=== PATIENT | female | born 1990 | race African-American/Black ===

== ENCOUNTER → 2016-10-19 | Outpatient (CLI) | payer OTHER ==
[~2016-10-19] MED LIST: BLOO-54; BLOO-54 SQ; BLOOD GLUCOSE T1 TES; GLUC1000 PO; GLYB5TAB3 PO; LEVEMIR SQ; MACR100C2 PO; NITR100C4 PO; NOVONP2 SQ; NOVORP2 SQ; SYRI1DIS; SYRI1DIS SQ; ZOFR4TAB3 SL; levemir SQ
== END ==
LOC: HPND 08:56
PROVIDERS: ATTEND Obstetrics & Gynecology
DX: O24.111 Pre-existing type 2 diabetes mellitus, in pregnancy, first trimester (principal); O09.211 Supervision of pregnancy with history of pre-term labor, first trimester; O99.211 Obesity complicating pregnancy, first trimester; E66.01 Morbid (severe) obesity due to excess calories; Z68.42 Body mass index [BMI] 45.0-49.9, adult
CPT/HCPCS: 76801; 76817

== ENCOUNTER → 2016-10-30 | Outpatient (CLI) | payer OTHER ==
[~2016-10-30] MED LIST changes: -levemir SQ
== END ==
LOC: HPND 08:22
PROVIDERS: ATTEND Obstetrics & Gynecology
DX: O26.841 Uterine size-date discrepancy, first trimester (principal); O35.8XX0 Maternal care for other (suspected) fetal abnormality and damage, not applicable or unspecified
CPT/HCPCS: 76815

== ENCOUNTER 2016-11-21 18:15 | Emergency (ER) | payer OTHER ==
[~2016-11-21 18:15] MED LIST changes: -BLOO-54; -BLOO-54 SQ; -BLOOD GLUCOSE T1 TES; -GLYB5TAB3 PO; -MACR100C2 PO; -NITR100C4 PO; -NOVONP2 SQ; -NOVORP2 SQ; -SYRI1DIS; -SYRI1DIS SQ; -ZOFR4TAB3 SL
[2016-11-21] MEDS ORDERED: LACTATED RINGER'S 1000 ML INJ 1,000 ML IV ONE (19:00)
--- NOTE | 2016-11-21 19:17 | PD ---
HPI Chief Complaint Nausea/vomiting 1 day duration. Diarrhea 1 day Date Seen: November 21, 2016 Time Seen: 19:00 Travel History International Travel<30 Days: No Contact w/Intl Traveler<30Days: No History of Present Illness HPI Pt is a 26 yo , 16 weeks and 1 day based on 12 week US here. Pt has complicated by IDDM.Pt takes Levemir insulin, as well as Metformin. Pt reports nausea and associated vomiting. Subsequent diarrhea. Pt denies any fevers. She denies earlier nausea and vomiting in this No vaginal bleeding. Denies urinary symptoms Para: 2 : 4 Last Menstrual Period: November 21, 2016 : 1 History Past Medical History Narrative Medical IDDM h/o delivery at 28 weeks Morbid obesity Obstetric History Obstetric History h/o delivery at 28 weeks Past Surgical History Surgical History: No Previous Surgery Family History Family History: Negative Social History Alcohol Use: No Tobacco Use: No Substance Abuse: No Allergies-Medications (Allergen,Severity, Reaction): Coded Allergies: Percocet (Verified Allergy, Intermediate, ITCHY SKIN, 10/18/16) *MDRO Multi-Drug Resistant Organism (Verified Adverse Reaction, Unknown, ) ESBL E.Coli urine 08/2015 Uncoded Allergies: EPIDURAL (Allergy, Severe, 10/08/14) Home Meds Reported Medications Metformin (Glucophage)1,000 Mg Tab1,000 Mg PO BIDPC #60 TAB Ref 0 With a meal 10/18/16 Insulin Detemir Inj (Levemir Inj)1,000 unit/ 10 ML Vial1 Units SQ HS Ref 0 Do not mix with any other Insulin. 10/18/16 Review of Systems Except as stated in HPI: all other systems reviewed are Neg Gastrointestinal: Nausea Physical Exam Narrative GENERAL: Well-nourished, well-developed patient. SKIN: Warm and dry. HEAD: Normocephalic and atraumatic. EYES: No scleral icterus. No injection or drainage. ENT: No nasal drainage noted. Mucous membranes pink. Airway patent. NECK: Supple, trachea midline. No JVD. CARDIOVASCULAR: Regular rate and rhythm without murmurs, gallops, or rubs. RESPIRATORY: Breath sounds equal bilaterally. No accessory muscle use. BREASTS: Bilateral exam showed no masses , no retractions, no nipple discharge. ABDOMEN/GI: Abdomen soft, non-tender, bowel sounds present, no rebound, no guarding Gravid to [-] weeks size Fundal Height: [-] GENITOURINARY: External Genitalia: intact and normal in appearance BUS glands: [-] Cervix: [-] Dilatation: [-] Effacement: [-] Station: [-] Presentation: [-] Membranes: [intact or ruptured] Uterine Contractions: [-] FHT's: Category: [-] Baseline: [-] Reactive: [-] Variability: [-] Decels: [-] EXTREMITIES: No cyanosis or edema. BACK: Nontender without obvious deformity. No CVA tenderness. NEUROLOGICAL: Awake and alert. Motor and sensory grossly within normal limits. Five out of 5 muscle strength in all muscle groups. Normal speech. Data Data Vital Signs Reviewed: Yes Orders Basic Metabolic Panel (Bmp) (11/21/16 18:56) Complete Blood Count With Diff (11/21/16 18:56) Urinalysis - C+S If Indicated (11/21/16 18:56) Lactated Ringer's 1000 Ml Inj (Lr 1000 M (11/21/16 19:00) MDM Medical Record Reviewed: Yes Plan UA suggestive of UTI with + nitrite, Leuks Pt feels much better after IV bolus. No more vomiting. Plan to discharge home, on Macrobid and Zofran ODT 4mg PRN Keep appt with OB 11-28-2016 Diagnosis Diagnosis: Primary Impression: UTI (urinary tract infection) Additional Impression: Dehydration Disposition: 01 DISCHARGE HOME Condition: Good Patient Instructions: General Instructions, Urinary Tract Infection in (ED) Semaj Church MD November 21, 2016 19:17
[2016-11-21 19:21] LABS: BASOPHIL # 0.1 TH/MM3 (0-0.2); BASOPHIL % 0.8 % (0.0-2.0); EOSINOPHIL # 0.2 TH/MM3 (0-0.4); EOSINOPHIL % 2.2 % (0.0-4.0); HEMATOCRIT 34.8 % (35.0-46.0); HEMO FLAGS DIFF FINAL; LYMPH % 22.3 % (9.0-44.0); LYMPHOCYTE # 1.6 TH/MM3 (1.0-4.8); MEAN CELL VOLUME 88.4 FL (80.0-100.0); MEAN CORPUSCULAR HEMOGLOBIN 30.4 PG (27.0-34.0); MEAN CORPUSCULAR HGB CONC 34.4 % (32.0-36.0); MONO % 6.3 % (0.0-8.0); NEUT % 68.4 % (16.0-70.0); PLATELET COUNT 286 TH/MM3 (150-450); RED BLOOD COUNT 3.93 MIL/MM3 (4.00-5.30); WHITE BLOOD COUNT 7.4 TH/MM3 (4.0-11.0)
[2016-11-21 19:25] LABS: BACTERIA, URINE MANY /hpf; BLOOD, URINE NEG (NEG); COMMENT (UR) CULTURE INDICATED; CULTURE IF INDICATED CULTURE INDICATED; GLUCOSE,URINE 300 mg/dL (NEG); HYALINE CAST, URINE 1 /lpf (RARE); KETONE, URINE TRACE mg/dL (NEG); MUCUS URINE FEW /lpf (OCC); NITRITE,URINE POS (NEG); SQUAMOUS EPITHELIAL CELL URINE 7 /hpf (0-5); URINE COLOR YELLOW (YELLW/STRAW)
[2016-11-21 19:31] LABS: BICARBONATE 25.7 MEQ/L (21.0-32.0); POTASSIUM 3.4 MEQ/L (3.5-5.1)
[2016-11-21] MEDS ORDERED: ZOFR4TAB3 SL (20:40)
[2016-11-21] MEDS ORDERED: MACR100C2 PO (20:40)
--- NOTE | 2016-11-21 20:44 | HHI.DCPOC ---
Discharge Care Plan Report Symptoms to Your Doctor -Temperate above 100.5 degrees -Redness, of incision or excessive or foul smelling drainage -Unusual pain or calf pain -Increased vaginal bleeding -Painful or difficulty urinating -Feelings of extreme sadness or anxiety after 2 weeks Goals to Promote Your Health * To prevent worsening of your condition and complications * To maintain your health at the optimal level Directions to Meet Your Goals Take your medications as prescribed Follow your dietary instruction Follow activity as directed Ensure plenty of rest for recovery Drink fluids for hydration Keep your appointments as scheduled Take your immunizations and boosters as scheduled If your symptoms worsen call your PCP, if no PCP go to Urgent Care Center or Emergency Room Smoking is Dangerous to Your Health. Avoid second hand smoke Call the 24-hour crisis hotline for domestic abuse at Semaj Church MD November 21, 2016 20:44
== END 2016-11-21 20:46 | disposition home or self-care (01) ==
LOC: HOBED 18:15
DX: O23.42 Unspecified infection of urinary tract in pregnancy, second trimester (principal); B96.20 Unspecified Escherichia coli [E. coli] as the cause of diseases classified elsewhere; E86.0 Dehydration; E11.9 Type 2 diabetes mellitus without complications; E66.01 Morbid (severe) obesity due to excess calories
CPT/HCPCS: 80048; 81001; 85025; 87077; 87086; 87186; 99284

== ENCOUNTER 2016-11-28 12:56 | Inpatient (IN) | payer OTHER ==
[~2016-11-28] VITALS: Ht 175.3 cm; Wt 140.6 kg
[~2016-11-28 12:56] MED LIST changes: -BLOO-54; -BLOO-54 SQ; -BLOOD GLUCOSE T1 TES; -GLYB5TAB3 PO; -NITR100C4 PO; -NOVONP2 SQ; -NOVORP2 SQ; -SYRI1DIS; -SYRI1DIS SQ
[2016-11-28] MEDS ORDERED: NALOXONE HCL 0.4 MG/ML AMP IV PRN (13:30)
[2016-11-28] MEDS ORDERED: ONDANSETRON HCL 4 MG/2 ML VIAL IVP PRN (13:30)
[2016-11-28] MEDS ORDERED: SODIUM CHLORIDE 0.9% FLUSH 10 ML FLUSH IV FLUSH PRN (13:30)
[2016-11-28] MEDS ORDERED: MAGNESIUM HYDROXIDE SUSP 30 ML CUP PO PRN (13:30)
[2016-11-28] MEDS ORDERED: GLUCAGON 1 MG/ML VIAL OTHER PRN (13:30)
[2016-11-28] MEDS ORDERED: ZOLPIDEM TARTRATE 5 MG TAB PO PRN (13:30)
[2016-11-28] MEDS ORDERED: DEXTROSE 50% IN WATER 50 ML VIAL(D50) IV PRN (13:30)
--- NOTE | 2016-11-28 14:25 | HHI.HP ---
HPI Chief Complaint Patient sent by [facility] for poorly controlled diabetes Date Seen: November 28, 2016 Time Seen: 13:40 (Skyler Carey MD R1) Travel History International Travel<30 Days: No Contact w/Intl Traveler<30Days: No Known Affected Area: No (Skyler Carey MD R1) History of Present Illness HPI Patient is a 26-year-old at 17 weeks and 1 day of gestational age who presents with poorly controlled diabetes at the request of the maternal- medicine unit. Patient was referred to [facility] for consultation for morbid obesity, diabetes, and history of delivery. Patient is morbidly obese with a BMI of 46. She was diagnosed with diabetes in 2014. She is followed monthly by her PCP. She did not bring her blood glucose log with her the reports only checking her blood sugars twice daily. She reports that her fasting values are in the 120s-150s and bedtime values are in the 150s-160s. She reports that her last hemoglobin A1c was around 12% around a year ago, but that result is not available in the EMR. She has not had an EKG or 24-hour urine collection and states that her last eye exam was approximally 3 years ago. Patient has never spoken with a unit educator. She reports that she does not eat breakfast. The first thing she eats is around noon. She reports that she is willing to keep breakfast if requested of her. She denies any vaginal bleeding this but states that she was recently diagnosed with UTI but has not started antibiotics. Para: 2 : 5 (Skyler Carey MD R1) History Past Medical History Narrative Medical Insulin dependent diabetes diagnosed in 2014 Morbid obesity Patient has a history of frequent UTIs and yeast infections. (Skyler Carey MD R1) Obstetric History Obstetric History 2011: Spontaneous miscarriage without D&C 2012: Term , competent, vaginal delivery, 8 lbs. 9 oz. female baby in good health. 2013: Spontaneous miscarriage without D&C 2014: 28 week , complicated by PTL and PTT, vaginal delivery, 3 lbs. 10 oz. male baby who spent one half months in the NICU, has developed mental delays, but is in good health. She reports being diagnosed with a kidney infection prior to having labor with delivery 2 days later. CPC CODER history: She has a history of regular menses. There is no previous history of cone biopsy, LEEP, or any other cervical, uterine, or gynecologic surgery. No history of congenital uterine abnormalities. There is no history of STDs. ( Skyler Carey MD R1) Past Surgical History Surgical History: No Previous Surgery (Skyler Carey MD R1) Family History Narrative Family History Patient is an . Her mother has a history of ovarian cancer and there is no information regarding her father. She has one maternal half-brother and 3 maternal half-sisters who are all healthy. The father of this baby is 28 years old, healthy, . He is the father of her prior pregnancies and has one child from a prior relationship who is healthy. His mother and father healthy. He has multiple half siblings who are all healthy. (Skyler Carey MD R1) Social History Alcohol Use: No Tobacco Use: No Substance Abuse: No (Skyler Carey MD R1) Allergies-Medications (Allergen,Severity, Reaction): Coded Allergies: Percocet (Verified Allergy, Intermediate, ITCHY SKIN, 10/18/16) *MDRO Multi-Drug Resistant Organism (Verified Adverse Reaction, Unknown, ) ESBL E.Coli (urine) - 08/2015 & 11/21/16 Uncoded Allergies: EPIDURAL (Allergy, Severe, 10/08/14) Home Meds Active Scripts Ondansetron Odt (Zofran Odt)4 Mg Tab4 Mg SL Q8HR PRN (Nausea/Vomiting) #20 TAB Ref 0 Prov:Semaj Church MD 11/21/16 Nitrofurantoin Monohydrate Macrocrystals (Macrobid)100 Mg Pvy603 Mg PO BID #10 CAP Ref 0 Prov:Semaj Church MD 11/21/16 Reported Medications Metformin (Glucophage)1,000 Mg Tab1,000 Mg PO BIDPC #60 TAB Ref 0 With a meal 10/18/16 Insulin Detemir Inj (Levemir Inj)1,000 unit/ 10 ML Vial1 Units SQ HS Ref 0 Do not mix with any other Insulin. 10/18/16 Narrative Medication vitamins, Januvia and medications below: Reported Meds & Active Scripts Active Zofran Odt (Ondansetron Odt) 4 Mg Tab 4 Mg SL Q8HR PRN Macrobid (Nitrofurantoin Monoh/Nitrofur Macro) 100 Mg Cap 100 Mg PO BID Reported Glucophage (Metformin HCl) 1,000 Mg Tab 1,000 Mg PO BIDPC With a meal Levemir Inj (Insulin Detemir) 1,000 unit/ 10 ML Vial 1 Units SQ HS Do not mix with any other Insulin. (Skyler Carey MD R1) Review of Systems General / Constitutional: No: Fever, Chills Eyes: No: Visual changes HENT: No: Headaches (history of migraine) Cardiovascular: No: Chest Pain or Discomfort, Edema Respiratory: No: Short of Breath Gastrointestinal: Abdominal Pain (some discomfort) Genitourinary: No: Dysuria Musculoskeletal: No: Edema Neurologic: No: Headache (history of migraines) (Skyler Carey MD R1) Physical Exam Narrative GENERAL: Well-nourished, well-developed obese female patient. SKIN: Warm and dry. HEAD: Normocephalic and atraumatic. EYES: No scleral icterus. No injection or drainage. ENT: No nasal drainage noted. Mucous membranes pink. Airway patent. NECK: Supple, trachea midline. No JVD. CARDIOVASCULAR: Regular rate and rhythm without murmurs, gallops, or rubs. RESPIRATORY: Breath sounds equal bilaterally. No accessory muscle use. ABDOMEN/GI: Obese Abdomen soft, non-tender, bowel sounds present, no rebound, no guarding. Exam limited due to body habitus FHR: OB ultrasound from this morning was reassuring with heart rate of 153 bpm. EXTREMITIES: No cyanosis or edema. BACK: Nontender without obvious deformity. No CVA tenderness. NEUROLOGICAL: Awake and alert. Motor and sensory grossly within normal limits. Five out of 5 muscle strength in all muscle groups. Normal speech. (Skyler Carey MD R1) Data Data Orders Dietary (Dietitian) Consult (11/28/16 13:17) Consult Cdl Driver (11/28/16 13:17) Case Management Consult (11/28/16 13:17) Bedside Glucose EVELYN.AC&HS (11/28/16 13:17) Blood Glucose Goal (Criteria) (11/28/16 13:17) Hypoglycemia 70 Mg/Dl Or < (11/28/16 13:17) Notify Dr: Other (11/28/16 13:17) Dextrose 50% In Jose (Vial) Inj (D50w (Vi (11/28/16 13:30) Glucagon Inj (Glucagon Inj) (11/28/16 13:30) Insulin Aspart Supplemtl Scale (Novolog (11/28/16 16:00) Insulin Human Nph Inj (Novolin N Inj) (11/29/16 07:00) Insulin Human Nph Inj (Novolin N Inj) (11/28/16 21:00) Insulin Aspart Inj (Novolog Inj) (11/29/16 07:00) Insulin Aspart Inj (Novolog Inj) (11/28/16 21:00) Insulin Aspart Inj (Novolog Inj) (11/29/16 13:00) Admit To Inpatient (11/28/16 ) Code Status (11/28/16:17) Vital Signs (Adult) Q4H (11/28/16:17) Activity Oob Ad Deisy (11/28/16:17) Diet Diabetic (11/28/16 Lunch) Sodium Chloride 0.9% Flush (Ns Flush) (11/28/16 13:30) Sodium Chloride 0.9% Flush (Ns Flush) (11/28/16 21:00) Acetaminophen (Tylenol) (11/28/16 13:30) Ondansetron Inj (Zofran Inj) (11/28/16 13:30) Comprehensive Metabolic Panel (11/29/16 06:00) Complete Blood Count With Diff (11/29/16 06:00) Electrocardiogram (11/28/16 13:17) Zolpidem (Ambien) (11/28/16 13:30) Naloxone Inj (Narcan Inj) (11/28/16 13:30) Magnesium Hydroxide Liq (Milk Of Magnesi (11/28/16 13:30) Inpatient Certification (11/28/16 ) Thyroid Stimulating Hormone (11/29/16 06:00) Mrsa Pcr Surveillance (11/28/16 13:31) Hemoglobin (Hgb) A1c (11/29/16 06:00) Total Protein 24hr Urine (11/28/16 13:31) Creatinine 24 Hr Urine (11/28/16 13:31) Creatinine Clearance (11/28/16 13:31) Insulin Aspart Inj (Novolog Inj) (11/30/16 12:00) (Skyler Carey MD R1) Assessment/Plan Problem List: (1) DM (diabetes mellitus) in (2) Diabetes mellitus, insulin dependent (IDDM), uncontrolled (3) H/O pre-term labor Assessment and Plan Patient is a 26-year-old at 17 weeks and 1 day of gestational age who presents with poorly controlled diabetes at the request of the maternal- medicine unit for metabolic control and optimization of her insulin regimen. 1. poorly controlled IDDM in on metformin, Januvia, Levemir 100 units daily Will follow MFM recommendations below: ADA 220 kcal/day diet Goal fasting blood glucose 70-90 mg/dL and 2 hour postprandial less than 120 mg /dL Adjust insulin dosing based on glycemic levels Hemoglobin A1c Baseline TSH CBC, CMP, 24 hour urine collection for creatinine clearance and to evaluate for proteinuria Baseline EKG growth, echocardiogram and cervical length in 4 weeks as ordered and scheduled Serial growth scans at 4 week intervals Twice weekly testing at 32 weeks. Delivery advised after 39 weeks if no indication for early or delivery. MRSA nasal swab collected during this hospitalization so will not be necessary prior to delivery. Furthermore: Monitor vitals and blood glucose We'll recommend outpatient eye exam Case management consult extension educator consult Dietitian consult Switch metformin to glyburide 5 mg by mouth twice a day Initial inpatient insulin regimen as below: * NPH 40 units subcutaneous every morning and 20 units subcutaneous daily at bedtime * NovoLog 10 units subcutaneous 3 times a day before meals * Low-dose sliding scale insulin NovoLog 2. History of . Consider weekly 17 hydroxy or just her own injections up to 36 weeks due to prior delivery. This therapy might affect her blood sugar control. MFM discussed signs and symptoms of in detail. DW Dr. Chaparro. Discharge Planning Anticipate discharge in several days after metabolic control and optimization of insulin regimen. (Skyler Carey MD R1) Collaborating MD Comments Patient seen and examined. New insulin regimen discussed in detail with patient Will need better control of carbohydrate intake during the day with assistance from dietary Macrobid for recent UTI (Bessie Chaparro MD) Skyler Carey MD R1 November 28, 2016 14:25 Bessie Chaparro MD November 29, 2016 08:09
[2016-11-28] MEDS: INSULIN ASPART SUPPLEMENTAL SCALE SQ SCH ×2 (14:46→23:45)
[2016-11-28 14:55] LABS: BACTERIA, URINE RARE /hpf; BLOOD, URINE NEG (NEG); COMMENT (UR) CULTURE INDICATED; CULTURE IF INDICATED CULTURE INDICATED; GLUCOSE,URINE 1000 mg/dL (NEG); KETONE, URINE 10 mg/dL (NEG); MUCUS URINE FEW /lpf (OCC); SQUAMOUS EPITHELIAL CELL URINE 3 /hpf (0-5); URINE COLOR YELLOW (YELLW/STRAW)
[2016-11-28 14:58] LABS: NITRITE,URINE POS (NEG)
[2016-11-28 16:09] LABS: AUTOMATED NEUTROPHIL # 4.4 TH/MM3 (1.8-7.7); BASOPHIL % 0.3 % (0.0-2.0); EOSINOPHIL # 0.1 TH/MM3 (0-0.4); EOSINOPHIL % 1.9 % (0.0-4.0); HEMATOCRIT 34.2 % (35.0-46.0); HEMO FLAGS DIFF FINAL; LYMPH % 24.3 % (9.0-44.0); LYMPHOCYTE # 1.6 TH/MM3 (1.0-4.8); MEAN CELL VOLUME 91.4 FL (80.0-100.0); MEAN CORPUSCULAR HEMOGLOBIN 30.2 PG (27.0-34.0); MONO % 5.6 % (0.0-8.0); NEUT % 67.9 % (16.0-70.0); PLATELET COUNT 246 TH/MM3 (150-450); RED BLOOD COUNT 3.74 MIL/MM3 (4.00-5.30); WHITE BLOOD COUNT 6.5 TH/MM3 (4.0-11.0)
[2016-11-28 16:28] LABS: ALT (GPT) 15 U/L (10-53); ANION GAP 9 MEQ/L (5-15); AST (GOT) 8 U/L (15-37); BICARBONATE 25.4 MEQ/L (21.0-32.0); BLOOD UREA NITROGEN 4 MG/DL (7-18); CHLORIDE 103 MEQ/L (98-107); GLOMERULAR FILTRATION RATE 139 ML/MIN (>89); POTASSIUM 3.5 MEQ/L (3.5-5.1); SODIUM (NA) 137 MEQ/L (136-145)
[2016-11-28 16:38] LABS: ALKALINE PHOSPHATASE 69 U/L (45-117); TOTAL BILIRUBIN ADULT 0.2 MG/DL (0.2-1.0)
[2016-11-28 16:57] LABS: HEMOGLOBIN LA1C 2.5 %; HEMOGLOBIN P3 3.9 %
[2016-11-28] MEDS ORDERED: glyBURIDE 5 MG TAB PO SCH ×2 (17:00→21:00)
[2016-11-28] MEDS: glyBURIDE 5 MG TAB PO SCH (21:00)
[2016-11-28] MEDS ORDERED: INSULIN HUMAN NPH 1,000 UNITS/10 ML VIAL SQ SCH (21:00)
[2016-11-28] MEDS: SODIUM CHLORIDE 0.9% FLUSH 10 ML FLUSH IV FLUSH SCH (21:00)
[2016-11-28] MEDS ORDERED: INSULIN ASPART 1,000 UNITS/10 ML VIAL SQ SCH (21:00)
[2016-11-28] MEDS: NITROFURANTOIN MONOHYD MACROCR 100 MG CAP PO SCH (21:44)
[2016-11-28] MEDS: ACETAMINOPHEN 325 MG TAB PO PRN (21:47)
[2016-11-29] MEDS ORDERED: INSULIN ASPART 1,000 UNITS/10 ML VIAL SQ SCH ×2 (07:00→13:00)
[2016-11-29] MEDS ORDERED: INSULIN HUMAN NPH 1,000 UNITS/10 ML VIAL SQ SCH ×2 (07:00→21:00)
[2016-11-29] MEDS: INSULIN ASPART SUPPLEMENTAL SCALE SQ SCH ×2 (07:00→11:00)
[2016-11-29] MEDS ORDERED: INSULIN HUMAN REGULAR 1,000 UNITS/10 ML VIAL SQ SCH ×2 (08:00→17:00)
[2016-11-29] MEDS: glyBURIDE 5 MG TAB PO SCH ×2 (08:06→21:12)
[2016-11-29] MEDS: NITROFURANTOIN MONOHYD MACROCR 100 MG CAP PO SCH ×2 (08:06→17:39)
[2016-11-29] MEDS: SODIUM CHLORIDE 0.9% FLUSH 10 ML FLUSH IV FLUSH SCH ×2 (08:07→21:00)
[2016-11-29] MEDS ORDERED: glyBURIDE 5 MG TAB PO SCH (09:00)
--- NOTE | 2016-11-29 10:12 | PD.OB.ANTE ---
Subjective Diagnosis: (1) DM (diabetes mellitus) in Diagnosis: Principal (2) Diabetes mellitus, insulin dependent (IDDM), uncontrolled Diagnosis: Principal (3) H/O pre-term labor Diagnosis: Secondary Interval History Patient denies any new complaints. She reports feeling well. She reports that it will be a difficult transition to eating breakfast in the morning. She denies ever having diabetic education. Antepartum ROS: Reports: movement normal, Denies: New complaints, Loss of fluid, Vaginal bleeding, Contractions ( Skyler Carey MD R1) Objective Vital Signs Vital Signs Date Time Temp Pulse Resp B/P Pulse Ox O2 Delivery O2 Flow Rate FiO2 11/28/16 23:45 18 Lab & Micro Results Test 11/28/16 11/28/16 14:30 15:16 Urine Color YELLOW Urine Turbidity CLEAR Urine pH 5.0 Urine Specific [place] 1.031 Urine Protein TRACE mg/dL Urine Glucose (UA) 1000 mg/dL Urine Ketones 10 mg/dL Urine Occult Blood NEG Urine Nitrite POS Urine Bilirubin NEG Urine Urobilinogen LESS THAN 2.0 MG/DL Urine Leukocyte Esterase NEG Urine WBC 4 /hpf Urine Squamous Epithelial 3 /hpf Cells Urine Bacteria RARE /hpf Urine Mucus FEW /lpf Microscopic Urinalysis Comment CULTURE INDICATED Nasal Screen MRSA (PCR) MRSA NOT DETECTED White Blood Count 6.5 TH/MM3 Red Blood Count 3.74 MIL/MM3 Hemoglobin 11.3 GM/DL Hematocrit 34.2 % Mean Corpuscular Volume 91.4 FL Mean Corpuscular Hemoglobin 30.2 PG Mean Corpuscular Hemoglobin 33.0 % Concent Red Cell Distribution Width 14.0 % Platelet Count 246 TH/MM3 Mean Platelet Volume 8.7 FL Neutrophils (%) (Auto) 67.9 % Lymphocytes (%) (Auto) 24.3 % Monocytes (%) (Auto) 5.6 % Eosinophils (%) (Auto) 1.9 % Basophils (%) (Auto) 0.3 % Neutrophils # (Auto) 4.4 TH/MM3 Lymphocytes # (Auto) 1.6 TH/MM3 Monocytes # (Auto) 0.4 TH/MM3 Eosinophils # (Auto) 0.1 TH/MM3 Basophils # (Auto) 0.0 TH/MM3 CBC Comment DIFF FINAL Differential Comment Sodium Level 137 MEQ/L Potassium Level 3.5 MEQ/L Chloride Level 103 MEQ/L Carbon Dioxide Level 25.4 MEQ/L Anion Gap 9 MEQ/L Blood Urea Nitrogen 4 MG/DL Creatinine 0.63 MG/DL Estimat Glomerular Filtration 139 ML/MIN Rate Random Glucose 208 MG/DL Hemoglobin A1c 7.3 % Calcium Level 8.3 MG/DL Total Bilirubin 0.2 MG/DL Aspartate Amino Transf 8 U/L (AST/SGOT) Alanine Aminotransferase 15 U/L (ALT/SGPT) Alkaline Phosphatase 69 U/L Total Protein 6.0 GM/DL Albumin 2.6 GM/DL Thyroid Stimulating Hormone 0.948 uIU/ML 3rd Gen Date/Time Procedure Status Source Growth 11/28/16 14:30 Urine Culture Received Urine Clean Catch Pending Physical Exam GENERAL: Well-nourished, well-developed obese female patient. CARDIOVASCULAR: Regular rate and rhythm without murmurs, gallops, or rubs. RESPIRATORY: Breath sounds equal bilaterally. No accessory muscle use. ABDOMEN/GI: Abdomen soft, non-tender. Difficult to assess uterine fundus secondary to body habitus EXTREMITIES: No cyanosis or edema, non-tender, without signs of DVT. (Skyler Carey MD R1) Assessment and Plan Problem List: (1) DM (diabetes mellitus) in Status: Acute (2) Diabetes mellitus, insulin dependent (IDDM), uncontrolled Status: Acute (3) H/O pre-term labor Status: Acute Assessment and Plan Patient is a 26-year-old at 17 weeks and 1 day of gestational age who presents with poorly controlled diabetes at the request of the maternal- medicine unit for metabolic control and optimization of her insulin regimen. 1. poorly controlled IDDM in was on metformin, Januvia, Levemir 100 units daily Will follow MFM recommendations below: ADA 2200 kcal/day diet. Will changed based on environmental compliance inspector recommendations. Goal fasting blood glucose 70-90 mg/dL and 2 hour postprandial less than 120 mg /dL Adjust insulin dosing based on glycemic levels Hemoglobin A1c of 7.3 Baseline TSH wnl CBC wnl except for some anemia with a hemoglobin of 11.3, CMP showed elevated random glucose of 208, 24 hour urine collection for creatinine clearance and to evaluate for proteinuria Baseline EKG pending growth, echocardiogram and cervical length in 4 weeks as ordered and scheduled Serial growth scans at 4 week intervals Twice weekly testing at 32 weeks. Delivery advised after 39 weeks if no indication for early or delivery. MRSA nasal swab collected during this hospitalization so will not be necessary prior to delivery. Furthermore: Monitor vitals and blood glucose: 190, 172, 151, 147. We'll recommend outpatient eye exam Case management consult access control officer consult Dietitian consult Switch metformin to glyburide 5 mg by mouth twice a day Initial inpatient insulin regimen as below: * NPH 40 units subcutaneous every morning and increased to 25 units subcutaneous daily at bedtime * NovoLog 10 units subcutaneous 3 times a day before meals * Low-dose sliding scale insulin NovoLog 2. History of . Consider weekly 17 hydroxy-progesterone injections up to 36 weeks due to prior delivery. This therapy might affect her blood sugar control. MFM discussed signs and symptoms of in detail. AALIYAH Chaparro and Dr. Euceda (Skyler Carey MD R1) Collaborating MD Comments Patient seen and examined. She is noncompliant with diet at this time, drinking sugar filled sodas and a large sub sandwich while I am talking with her. I reviewed the importance of diet and the need for split dose insulin therapy. Patient does not agree with dietary measures at the time but will allow admission to initiate insulin therapy. (Bessie Chaparro MD) Skyler Carey MD R1 November 29, 2016 10:12 Bessie Chaparro MD Dec 14, 2016 07:45 AALIYAH Chaparro. Skyler Carey MD R1 November 29, 2016 10:12
[2016-11-29 11:52] VITALS: BP 117/65; PULSE 94
[2016-11-29 11:53] VITALS: RESP 20; TEMP 98
[2016-11-29 17:04] LABS: CREAT 24 TIMED 92.1 MG/DL; URINE TOTAL PROTEIN TIMED 9.7 MG/DL
[2016-11-29 19:59] VITALS: RESP 18; TEMP 98.5
[2016-11-29 20:00] VITALS: BP 117/60; PULSE 95
[2016-11-30 07:25] VITALS: BP 109/57; PULSE 93
[2016-11-30] MEDS ORDERED: INSULIN HUMAN REGULAR 1,000 UNITS/10 ML VIAL SQ ONE (07:30)
[2016-11-30 07:33] VITALS: RESP 18; TEMP 99
[2016-11-30] MEDS: SODIUM CHLORIDE 0.9% FLUSH 10 ML FLUSH IV FLUSH SCH ×2 (07:45→21:00)
[2016-11-30] MEDS: INSULIN HUMAN NPH 1,000 UNITS/10 ML VIAL SQ SCH (08:25)
[2016-11-30] MEDS: glyBURIDE 5 MG TAB PO SCH ×2 (09:01→21:03)
[2016-11-30] MEDS: NITROFURANTOIN MONOHYD MACROCR 100 MG CAP PO SCH ×2 (09:01→18:17)
--- NOTE | 2016-11-30 09:38 | HHI.FPPN ---
Subjective Remarks Patient seen and examined this morning. She reports feeling well this morning. Denies nausea, vomiting, leakage of fluid, vaginal bleeding, abdominal pain or cramping. She met with the certified breastfeeding educator yesterday and reports that this was very helpful. She understands that her blood sugar was elevated this morning and that she will need to remain in the hospital for 1 additional day to better control her diabetes. She is able to draw up and administer her own insulin without difficulty. Objective Vitals Vital Signs Date Time Temp Pulse Resp B/P Pulse Ox O2 Delivery O2 Flow Rate FiO2 11/30/16 07:33 99.0 18 11/30/16 07:25 93 109/57 11/29/16 20:00 95 117/60 11/29/16 19:59 18 11/29/16 19:59 98.5 11/29/16 11:53 98.0 20 11/29/16 11:52 94 117/65 Result Diagram: 11/28/16 1516 11/29/16 1400 Objective Remarks GENERAL: Well-nourished, well-developed obese female patient. SKIN: Warm and dry. HEAD: Normocephalic and atraumatic. EYES: No scleral icterus. No injection or drainage. ENT: No nasal drainage noted. Mucous membranes pink. Airway patent. NECK: Supple, trachea midline. No JVD. CARDIOVASCULAR: Regular rate and rhythm without murmurs, gallops, or rubs. RESPIRATORY: Breath sounds equal bilaterally. No accessory muscle use. ABDOMEN/GI: Obese Abdomen soft, non-tender, bowel sounds present, no rebound, no guarding. Exam limited due to body habitus FHR: 150 bpm. EXTREMITIES: No cyanosis or edema. NEUROLOGICAL: Awake and alert. Motor and sensory grossly within normal limits. Normal speech. A/P Assessment and Plan Patient is a 26-year-old at 17 weeks and 2 day of gestational age who presents with poorly controlled diabetes at the request of the maternal- medicine for optimization of her insulin regimen. 1. Poorly controlled IDDM in on metformin, Januvia, Levemir 100 units daily Will follow MFM recommendations below: ADA 2200 kcal/day diet Goal fasting blood glucose 70-90 mg/dL and 2 hour postprandial less than 120 mg /dL Adjust insulin dosing based on glycemic levels Hemoglobin A1c 7.3 Baseline TSH: 0.948 24 hour urine creatinine 2.37, creatinine clearance over 24 hours 181, urine total protein over 24 hours 250 Baseline EKG: Sinus rhythm growth, echocardiogram and cervical length in 4 weeks as ordered and scheduled Serial growth scans at 4 week intervals Twice weekly testing at 32 weeks. Delivery advised after 39 weeks if no indication for early or delivery. MRSA nasal swab collected during this hospitalization so will not be necessary prior to delivery. Furthermore: Monitor vitals and blood glucose We'll recommend outpatient eye exam Case management consult community nutrition educator consult Dietitian consult Switch metformin to glyburide 5 mg by mouth twice a day Insulin regimen as below: * NPH Novolin N 40 units subcutaneous BID@7, 1700 * Novolin R 15 units @700, 20 units @1700subcutaneous 2. History of . Consider weekly 17 hydroxy or just her own injections up to 36 weeks due to prior delivery. This therapy might affect her blood sugar control. Care for women to order this medication pending insurance approval MFM discussed signs and symptoms of in detail. Clarence Hernandez Dr., MD R2 Nov 30, 2016 09:38
--- NOTE | 2016-11-30 11:53 | EKG ---
Date Performed: 11/29/2016 Time Performed: 12:39:45 PTAGE: 26 years EKG: Sinus rhythm NONSPECIFIC T-WAVE ABNORMALITY BORDERLINE ECG PREVIOUS TRACING : 04/26/2015 16.57 Compared to prior tracing no significant change DOCTOR: Jhonatan Mon Interpretating Date/Time 11/30/2016 11:52:32
[2016-11-30] MEDS ORDERED: INSULIN ASPART 1,000 UNITS/10 ML VIAL SQ SCH ×2 (12:00→17:00)
[2016-11-30 17:00] VITALS: RESP 18
[2016-11-30] MEDS ORDERED: INSULIN HUMAN REGULAR 1,000 UNITS/10 ML VIAL SQ SCH (17:00)
[2016-11-30] MEDS ORDERED: INSULIN HUMAN NPH 1,000 UNITS/10 ML VIAL SQ SCH ×2 (17:00)
[2016-11-30 17:14] VITALS: BP 115/74; PULSE 129
[2016-11-30 21:01] VITALS: BP 104/42; PULSE 90
[2016-11-30] MEDS: ACETAMINOPHEN 325 MG TAB PO PRN (21:03)
[2016-11-30 21:05] VITALS: RESP 18; TEMP 98.4
[2016-12-01] MEDS ORDERED: INSULIN ASPART 1,000 UNITS/10 ML VIAL SQ SCH (07:00)
[2016-12-01] MEDS ORDERED: INSULIN HUMAN NPH 1,000 UNITS/10 ML VIAL SQ SCH ×3 (07:00→17:00)
[2016-12-01] MEDS ORDERED: INSULIN HUMAN REGULAR 1,000 UNITS/10 ML VIAL SQ SCH ×2 (07:00→17:00)
[2016-12-01] MEDS: INSULIN HUMAN NPH 1,000 UNITS/10 ML VIAL SQ SCH (09:08)
[2016-12-01] MEDS: NITROFURANTOIN MONOHYD MACROCR 100 MG CAP PO SCH (09:09)
[2016-12-01] MEDS: glyBURIDE 5 MG TAB PO SCH (09:09)
[2016-12-01 09:17] VITALS: BP 104/59; PULSE 110
--- NOTE | 2016-12-01 09:20 | PD.OB.ANTE ---
Subjective Diagnosis: (1) DM (diabetes mellitus) in Diagnosis: Principal (2) Diabetes mellitus, insulin dependent (IDDM), uncontrolled Diagnosis: Principal (3) H/O pre-term labor Diagnosis: Secondary Interval History Pt seen and examined this morning. AFVSS. No acute events overnight. Pt reports doing well this morning. She endorses movement, denies leakage of fluid, vaginal bleeding, contractions. She reports understanding her diet plan that was reviewed in depth with the hand alterations seamstress. She has already met with the certified diabetes educator, has no additional questions at this time. Blood sugar this morning 154. She expresses that she will follow up with her OB care provider regularly as well as MFM. She has no other concerns. (Clarence Sprague MD R2) Objective Vital Signs Vital Signs Date Time Temp Pulse Resp B/P Pulse Ox O2 Delivery O2 Flow Rate FiO2 11/30/16 21:05 98.4 18 11/30/16 21:01 90 104/42 11/30/16 17:14 129 115/74 11/30/16 17:00 18 Lab & Micro Results Date/Time Procedure Status Source Growth 11/28/16 14:30 Urine Culture - Final Complete Urine Clean Catch Escherichia Coli Esbl Positive Physical Exam GENERAL: Well-nourished, well-developed patient. CARDIOVASCULAR: Regular rate and rhythm without murmurs, gallops, or rubs. RESPIRATORY: Breath sounds equal bilaterally. No accessory muscle use. ABDOMEN/GI: Abdomen soft, obese, non-tender. Fundus: difficult to palpate due to body habitus, exam limited GENITOURINARY: Exam deferred FHT's: 160 with doppler EXTREMITIES: No cyanosis or edema, non-tender, without signs of DVT. (Clarence Sprague MD R2) Assessment and Plan Problem List: (1) DM (diabetes mellitus) in Status: Acute (2) Diabetes mellitus, insulin dependent (IDDM), uncontrolled Status: Acute (3) H/O pre-term labor Status: Acute Assessment and Plan Patient is a 26-year-old at 17 weeks and 3 day of gestational age who presents with poorly controlled diabetes at the request of the maternal- medicine for optimization of her insulin regimen. 1. Poorly controlled IDDM in ,previously on metformin, Januvia, Levemir 100 units daily Will follow MFM recommendations, included below. ADA 2200 kcal/day diet Goal fasting blood glucose 70-90 mg/dL and 2 hour postprandial less than 120 mg /dL Adjust insulin dosing based on glycemic levels Hemoglobin A1c 7.3 Baseline TSH: 0.948 24 hour urine creatinine 2.37, creatinine clearance over 24 hours 181, urine total protein over 24 hours 250 Baseline EKG: Sinus rhythm growth, echocardiogram and cervical length in 4 weeks as ordered and scheduled Serial growth scans at 4 week intervals Twice weekly testing at 32 weeks. Delivery advised after 39 weeks if no indication for early or delivery. MRSA nasal swab collected during this hospitalization so will not be necessary prior to delivery. MRSA swab negative. Furthermore: Monitor vitals and blood glucose We'll recommend outpatient eye exam Case management consult certified diabetes educator consult completed Dietitian consult completed Continue glyburide 5 mg by mouth twice a day Insulin regimen as below: * NPH Novolin N 40 units subcutaneous BID@7:00, Will increase 17:00 dose to 50units due to persistently elevated morning blood glucose * Will increase subq Novolin R to 20 units @700, and 25 units @1700 2. History of . Consider weekly 17 hydroxy or just her own injections up to 36 weeks due to prior delivery. This therapy might affect her blood sugar control. [facility] to order this medication pending insurance approval, this was discussed with [facility] MFM discussed signs and symptoms of in detail. dw Dr. Keys and Dr. Euceda (Clarence Sprague MD R2) Assessment and Plan The exam, history, and the medical decision-making described in the above note were completed with the assistance of the resident provider. I reviewed and agree with the findings presented. I attest that I had a [id number] encounter with the patient on the same day, and personally performed and documented my assessment and findings in the medical record. (Lisa Keys MD) Clarence Sprague MD R2 Dec 01, 2016 09:20 Lisa Keys MD Dec 04, 2016 10:46
[2016-12-01 09:21] VITALS: RESP 20; TEMP 98.3
[2016-12-01] MEDS ORDERED: NOVORP2 SQ ×2 (11:54)
[2016-12-01] MEDS ORDERED: NOVONP2 SQ ×2 (11:54)
[2016-12-01] MEDS ORDERED: SYRI1DIS (11:54)
[2016-12-01] MEDS ORDERED: BLOOD GLUCOSE T1 TES ×2 (11:54→12:00)
[2016-12-01] MEDS ORDERED: NITR100C4 PO (11:54)
[2016-12-01] MEDS ORDERED: GLYB5TAB3 PO (11:54)
[2016-12-01] MEDS ORDERED: BLOO-54 (11:54)
[2016-12-01] MEDS ORDERED: BLOO-54 SQ (12:00)
[2016-12-01] MEDS ORDERED: SYRI1DIS SQ (12:00)
--- NOTE | 2016-12-01 12:06 | HHI.DCPOC ---
Discharge Care Plan Diagnosis: (1) UTI (urinary tract infection) (2) DM (diabetes mellitus) in (3) Diabetes mellitus, insulin dependent (IDDM), uncontrolled (4) H/O pre-term labor Report Symptoms to Your Doctor -Temperature above 100.5 degrees -Redness, of incision or excessive or foul smelling drainage -Unusual pain or calf pain -Increased vaginal bleeding -Painful or difficulty urinating -Feelings of extreme sadness or anxiety after 2 weeks Goals to Promote Your Health * To prevent worsening of your condition and complications * To maintain your health at the optimal level Directions to Meet Your Goals Take your medications as prescribed Follow your dietary instruction Follow activity as directed Ensure plenty of rest for recovery Drink fluids for hydration Keep your appointments as scheduled Take your immunizations and boosters as scheduled If your symptoms worsen call your PCP, if no PCP go to Urgent Care Center or Emergency Room Smoking is Dangerous to Your Health. Avoid second hand smoke Call the 24-hour crisis hotline for domestic abuse at Clarence Sprague MD R2 Dec 01, 2016 12:06
[2016-12-02] MEDS ORDERED: INSULIN HUMAN REGULAR 1,000 UNITS/10 ML VIAL SQ SCH (07:00)
== END 2016-12-01 13:49 | disposition home or self-care (01) | DRG 781 ==
LOC: H2EB 12:56 → OBSVTOIN 13:31
PROVIDERS: ADMIT Obstetrics & Gynecology Obstetrics; ATTEND Obstetrics & Gynecology Obstetrics
DX: O24.112 Pre-existing type 2 diabetes mellitus, in pregnancy, second trimester (principal); Z68.42 Body mass index [BMI] 45.0-49.9, adult; E11.65 Type 2 diabetes mellitus with hyperglycemia; O23.42 Unspecified infection of urinary tract in pregnancy, second trimester; O99.212 Obesity complicating pregnancy, second trimester; O99.012 Anemia complicating pregnancy, second trimester; D64.9 Anemia, unspecified; Z3A.17 17 weeks gestation of pregnancy; E66.01 Morbid (severe) obesity due to excess calories; O09.212 Supervision of pregnancy with history of pre-term labor, second trimester; Z79.4 Long term (current) use of insulin; Z88.5 Allergy status to narcotic agent; Z71.3 Dietary counseling and surveillance
CPT/HCPCS: 76811; 76817; 80053; 81001; 82570; 82575; 82948; 83036; 84157; 84443; 85025; 87077; 87086; 87186; 87641; 93005; J1815

== ENCOUNTER → 2016-11-28 | Outpatient (CLI) | payer OTHER ==
[~2016-11-28] MED LIST changes: +BLOO-54; +BLOO-54 SQ; +BLOOD GLUCOSE T1 TES; +GLYB5TAB3 PO; +MACR100C2 PO; +NITR100C4 PO; +NOVONP2 SQ; +NOVORP2 SQ; +SYRI1DIS; +SYRI1DIS SQ; +ZOFR4TAB3 SL
== END ==
LOC: HPND 09:19 → UNDOADMOB 12:12 → H2EB 12:12
PROVIDERS: ATTEND Obstetrics & Gynecology
DX: O24.919 Unspecified diabetes mellitus in pregnancy, unspecified trimester (principal); O09.292 Supervision of pregnancy with other poor reproductive or obstetric history, second trimester; O99.212 Obesity complicating pregnancy, second trimester; Z3A.00 Weeks of gestation of pregnancy not specified
CPT/HCPCS: 76811; 76817

== ENCOUNTER → 2016-12-27 | Outpatient (CLI) | payer OTHER ==
[~2016-12-27] MED LIST changes: +BLOO-54 SQ; +BLOOD GLUCOSE T1 TES; -GLUC1000 PO; +GLYB5TAB3 PO; -LEVEMIR SQ; -MACR100C2 PO; +NOVONP2 SQ; +NOVORP2 SQ; +SYRI1DIS SQ; -ZOFR4TAB3 SL
== END ==
LOC: HPND 08:43
PROVIDERS: ATTEND Obstetrics & Gynecology
DX: O35.8XX0 Maternal care for other (suspected) fetal abnormality and damage, not applicable or unspecified (principal); O24.112 Pre-existing type 2 diabetes mellitus, in pregnancy, second trimester; O99.212 Obesity complicating pregnancy, second trimester; E66.01 Morbid (severe) obesity due to excess calories; Z68.42 Body mass index [BMI] 45.0-49.9, adult
CPT/HCPCS: 76816; 76817; 76825; 76827; 93325

== ENCOUNTER → 2017-01-24 | Outpatient (CLI) | payer OTHER | LOC: HPND 09:06 | PROVIDERS: ATTEND Obstetrics & Gynecology | DX: O09.212 Supervision of pregnancy with history of pre-term labor, second trimester (principal); O99.212 Obesity complicating pregnancy, second trimester; O24.414 Gestational diabetes mellitus in pregnancy, insulin controlled; Z68.42 Body mass index [BMI] 45.0-49.9, adult | CPT/HCPCS: 76816 ==

== ENCOUNTER → 2017-02-27 | Outpatient (CLI) | payer OTHER ==
[~2017-02-27] MED LIST changes: +AMOX500C PO; +CEPH500C PO; +GUMMCHW; +IBUP-232 PO; +INSU1POW25 SQ; +METF1000 PO; +NITR1CAP36 PO; +NITR1CAP37 PO; +NOVOINJ6 SQ; +TRAM50TA PO
== END ==
LOC: HPND 09:17
PROVIDERS: ATTEND Obstetrics & Gynecology
DX: O99.213 Obesity complicating pregnancy, third trimester (principal); E66.01 Morbid (severe) obesity due to excess calories; Z68.42 Body mass index [BMI] 45.0-49.9, adult; O24.113 Pre-existing type 2 diabetes mellitus, in pregnancy, third trimester; Z3A.30 30 weeks gestation of pregnancy
CPT/HCPCS: 76816

== ENCOUNTER 2017-04-05 11:52 | Emergency (ER) | payer OTHER ==
[~2017-04-05 11:52] MED LIST changes: -AMOX500C PO; -CEPH500C PO; -GUMMCHW; -IBUP-232 PO; -INSU1POW25 SQ; -METF1000 PO; -NITR1CAP37 PO; -NOVOINJ6 SQ; -TRAM50TA PO
[2017-04-05] MEDS ORDERED: NITR1CAP37 PO (12:59)
[2017-04-05] MEDS ORDERED: NITR1CAP36 PO (12:59)
--- NOTE | 2017-04-05 12:59 | PD ---
HPI Chief Complaint pelvic pain and pressure Travel History International Travel<30 Days: No Contact w/Intl Traveler<30Days: No Known Affected Area: No History of Present Illness HPI Patient is a 26 y/o female w/hx of DM2 who is a @ 35 weeks presenting with lower pelvic pain and pressure since yesterday. States it is similar to pain she experienced when in labor with her last . Denies vaginal bleeding, significant leakage of fluid. +FM. Coming from OB diagnostic where she just had a BPP performed. Result was 04/10. Sees Dr. Cervantes at [facility]. Testing and f/u in this has been uneventful. Hx of chlamydia and positive GBS status in previous pregnancies. Develops recurrent UTIs. Is worried she currently has a UTI. Has no other complaints. Blood sugars run 100-129. Taking levemir, metformin, and novolin for DM2. Weeks Gestation: 35 Para: 2 : 5 Miscarriage: 2 History Past Medical History Narrative Medical DM2 - taking lemeir x2/day, metformin 1000 mg BID, and novolin x2/day Obstetric History Obstetric History 2013 full term vaginal 2011 vaginal 2 spon't Ab Past Surgical History Surgical History: Unable to Obtain Family History Family History: Social History Alcohol Use: No Tobacco Use: No Substance Abuse: No Allergies-Medications (Allergen,Severity, Reaction): Coded Allergies: acetaminophen (Unverified Allergy, Intermediate, ITCHY SKIN, 02/27/17) oxycodone (Unverified Allergy, Intermediate, ITCHY SKIN, 02/27/17) *MDRO Multi-Drug Resistant Organism (Verified Adverse Reaction, Unknown, ) ESBL E.Coli (urine) - 08/2015 & 11/21/16 Uncoded Allergies: EPIDURAL (Allergy, Severe, 10/08/14) Home Meds Active Scripts Nitrofurantoin Macrocrystal (Nitrofurantoin Macrocrystal) 50 Mg Cap, 50 MG PO DAILY for Infection, #30 CAP 0 Refills Prov:Jayleen Melgar MD R1 04/05/17 Nitrofurantoin Macrocrystal (Nitrofurantoin Macrocrystal) 100 Mg Cap, 100 MG PO BID for Infection, #14 CAP 0 Refills Prov:Jayleen Melgar MD R1 04/05/17 Nitrofurantoin Macrocrystal (Nitrofurantoin Macrocrystal) 100 Mg Cap, 100 MG PO BID for Infection for 7 Days, #14 CAP 0 Refills Prov:Alexsandra Butt 02/27/17 Syringe and Needle,Insulin,1Ml (Insulin Syringe) 1 Each Disp.syrin, UNIT SQ QID , #150 Check blood sugar 4 times per day Prov:Jarod Hameed MD 01/15/17 Insulin Human Regular Inj (Novolin R Inj) 1,000 Unit/10 Ml Vial, 25 UNITS SQ DAILY@17 for DIABETIC, #1 INJECTION Prov:Jarod Hameed MD 01/15/17 Insulin Human Regular Inj (Novolin R Inj) 1,000 Unit/10 Ml Vial, 20 UNITS SQ DAILY@07 for DIABETIC for 30 Days, INJECTION Prov:Jarod Hameed MD 01/15/17 Insulin Human NPH Inj (Novolin N Inj) 1,000 Unit/10 Ml Vial, 40 INJECTION SQ DAILY@07 for diabetic for 30 Days, INJECTION Prov:Jarod Hameed MD 01/15/17 Blood Glucose Test Strips (Blood Glucose Test Strips) Strips Strip, 1 EA .ROUTE QID for Blood Sugar Management, #150 BOX 0 Refills Prov:Clarence Sprague MD R3 12/01/16 Blood-Glucose Meter (Blood Glucose Monitor) 1 Each Kit, KIT SQ QID, #1 Check blood glucose 4 times daily, record values Prov:Clarence Sprague MD R3 12/01/16 Glyburide (Glyburide) 5 Mg Tab, 5 MG PO Q12HR, #60 TAB Prov:Clarence Sprague MD R3 12/01/16 Physical Exam Narrative GENERAL: Well-nourished, well-developed patient. SKIN: Warm and dry. HEAD: Normocephalic and atraumatic. EYES: No scleral icterus. No injection or drainage. ENT: No nasal drainage noted. Mucous membranes pink. Airway patent. NECK: Supple, trachea midline. No JVD. CARDIOVASCULAR: Regular rate and rhythm without murmurs, gallops, or rubs. RESPIRATORY: Breath sounds equal bilaterally. No accessory muscle use. BREASTS: Bilateral exam showed no masses , no retractions, no nipple discharge. ABDOMEN/GI: Abdomen soft, non-tender, bowel sounds present, no rebound, no guarding Gravid to 35 weeks size Fundal Height: [-] GENITOURINARY: External Genitalia: intact and normal in appearance Cervix: [-] Dilatation: closed Effacement: [-] Station: [-] Presentation: [-] Membranes: [intact or ruptured] Uterine Contractions: [-] FHT's: Category: 1 Baseline: 130 Reactive: yes Variability: yes Decels: none EXTREMITIES: No cyanosis or edema. NEUROLOGICAL: Awake and alert. Motor and sensory grossly within normal limits. Normal speech. MDM Plan @35/3 weeks - not laboring - FHT reassuring - BPP today 04/10 - glucose check - 115 - UA shows +LE, glucose and protein; consistent with DM2 and UTI. Will provide Macrobid to treat UTI for a week and Macrodantin for a month DW Dr. Euceda Diagnosis Diagnosis: Primary Impression: DM (diabetes mellitus) in Additional Impressions: UTI (urinary tract infection) Disposition: 01 DISCHARGE HOME Condition: Stable Scripts Nitrofurantoin Macrocrystal (Nitrofurantoin Macrocrystal) 50 Mg Cap 50 MG PO DAILY for Infection, #30 CAP 0 Refills Prov: Jayleen Melgar MD R1 04/05/17 Nitrofurantoin Macrocrystal (Nitrofurantoin Macrocrystal) 100 Mg Cap 100 MG PO BID for Infection, #14 CAP 0 Refills Prov: Jayleen Melgar MD R1 04/05/17 Jayleen Melgar MD R1 Apr 05, 2017 12:59
[2017-04-16] MEDS ORDERED: AMOX500C PO (09:25)
== END 2017-04-05 13:10 | disposition home or self-care (01) ==
LOC: HOBED 11:52
DX: O24.913 Unspecified diabetes mellitus in pregnancy, third trimester (principal); O23.43 Unspecified infection of urinary tract in pregnancy, third trimester; Z3A.35 35 weeks gestation of pregnancy; Z79.4 Long term (current) use of insulin
CPT/HCPCS: 82948

== ENCOUNTER 2017-04-19 11:14 | Emergency (ER) | payer OTHER ==
[~2017-04-19] VITALS: Ht 175.3 cm; Wt 139.3 kg
[~2017-04-19 11:14] MED LIST changes: +AMOX500C PO; +NITR1CAP37 PO
--- NOTE | 2017-04-19 12:02 | PD ---
HPI Travel History International Travel<30 Days: No Contact w/Intl Traveler<30Days: No Known Affected Area: No (Faviola Stubbs MD R1) History of Present Illness HPI 26 yr old A2 at 37/3 weeks present with left hip pain. Accompanied by . She reports pain located at left hip and b/l pelvis radiating to left foot. She describes the pain as sharp, numb, and constant. She has tried Tylenol w/o relief. She reports having sciatic pain during her first . She denies leakage of fluid, vaginal bleeding. She reports good movement and irregular contractions. She denies fevers, N/V, dysuria, URI symptoms, diarrhea, CP, SOB, and abdominal pain. She is receiving care at [facility]. (Faviola Stubbs MD) History Past Medical History Narrative Medical DM on metformin and Novolog (Faviola Stubbs MD) Obstetric History Obstetric History A2 Hx of premature baby at 28 weeks All deliveries have been (Faviola Stubbs MD) Past Surgical History Surgical History: No Previous Surgery (Faviola Stubbs MD) Family History Narrative Family History DM, HTN (Faviola Stubbs MD) Social History Alcohol Use: No Tobacco Use: No Substance Abuse: No (Faviola Stubbs MD) Allergies-Medications (Allergen,Severity, Reaction): Coded Allergies: acetaminophen (Unverified Allergy, Intermediate, ITCHY SKIN, 04/12/17) oxycodone (Unverified Allergy, Intermediate, ITCHY SKIN, 04/12/17) *MDRO Multi-Drug Resistant Organism (Verified Adverse Reaction, Unknown, 04/12/17) ESBL E.Coli (urine) - 08/2015 & 11/21/16 Uncoded Allergies: EPIDURAL (Allergy, Severe, 10/08/14) Home Meds Active Scripts Amoxicillin (Amoxicillin) 500 Mg Cap, 500 MG PO TID for Infection for 7 Days, # 21 CAP 0 Refills Prov:Jarod Hameed MD 04/16/17 Nitrofurantoin Macrocrystal (Nitrofurantoin Macrocrystal) 50 Mg Cap, 50 MG PO DAILY for Infection, #30 CAP 0 Refills Prov:Jayleen Melgar MD R1 04/05/17 Nitrofurantoin Macrocrystal (Nitrofurantoin Macrocrystal) 100 Mg Cap, 100 MG PO BID for Infection, #14 CAP 0 Refills Prov:Jayleen Melgar MD R1 04/05/17 Nitrofurantoin Macrocrystal (Nitrofurantoin Macrocrystal) 100 Mg Cap, 100 MG PO BID for Infection for 7 Days, #14 CAP 0 Refills Prov:Alexsandra Butt 02/27/17 Syringe and Needle,Insulin,1Ml (Insulin Syringe) 1 Each Disp.syrin, UNIT SQ QID , #150 Check blood sugar 4 times per day Prov:Jarod Hameed MD 01/15/17 Insulin Human Regular Inj (Novolin R Inj) 1,000 Unit/10 Ml Vial, 25 UNITS SQ DAILY@17 for DIABETIC, #1 INJECTION Prov:Jarod Hameed MD 01/15/17 Insulin Human Regular Inj (Novolin R Inj) 1,000 Unit/10 Ml Vial, 20 UNITS SQ DAILY@07 for DIABETIC for 30 Days, INJECTION Prov:Jarod Hameed MD 01/15/17 Insulin Human NPH Inj (Novolin N Inj) 1,000 Unit/10 Ml Vial, 40 INJECTION SQ DAILY@07 for diabetic for 30 Days, INJECTION Prov:Jarod Hameed MD 01/15/17 Blood Glucose Test Strips (Blood Glucose Test Strips) Strips Strip, 1 EA .ROUTE QID for Blood Sugar Management, #150 BOX 0 Refills Prov:Clarence Sprague MD R3 12/01/16 Blood-Glucose Meter (Blood Glucose Monitor) 1 Each Kit, KIT SQ QID, #1 Check blood glucose 4 times daily, record values Prov:Clarence Sprague MD R3 12/01/16 Glyburide (Glyburide) 5 Mg Tab, 5 MG PO Q12HR, #60 TAB Prov:Clarence Sprague MD R3 12/01/16 Review of Systems Except as stated in HPI: all other systems reviewed are Neg (Faviola Stubbs MD R1) Physical Exam Narrative GENERAL: Well-nourished, well-developed patient. SKIN: Warm and dry. HEAD: Normocephalic and atraumatic. EYES: No scleral icterus. No injection or drainage. ENT: No nasal drainage noted. Mucous membranes pink. Airway patent. NECK: Supple, trachea midline. No JVD. CARDIOVASCULAR: Regular rate and rhythm without murmurs, gallops, or rubs. RESPIRATORY: Breath sounds equal bilaterally. No accessory muscle use. ABDOMEN/GI: Abdomen soft, non-tender, bowel sounds present, no rebound, no guarding GENITOURINARY: Cervix: posterior Dilatation: 3cm Effacement: 50% Station: -3 Presentation: vertex Membranes: intact Uterine Contractions: [place] FHT's: Category: 1 Baseline: 130s Reactive: yes Variability: moderate Decels: no EXTREMITIES: No cyanosis or edema. BACK: Nontender without obvious deformity. NEUROLOGICAL: Awake and alert. Motor and sensory grossly within normal limits. (Faviola Stubbs MD R1) Data Data Vital Signs Reviewed: Yes (Faviola Stubbs MD R1) MDM Plan 26 yr old at 37/3 presents with sciatic nerve pain 1.IUP -category 1, baseline 130s, reactive, reassuring -continue with OB care 2. Sciatica -Review with patient stretches she can performed -Heating/cold pack for pain -Avoid stairs, walk on flat surface with good shoes -Tylenol for pain 3. DM -Blood sugars have been well-controlled per patient -Continue to see OB diagnostics (Faviola Stubbs MD R1) Diagnosis Diagnosis: Primary Impression: Sciatic leg pain Disposition: 01 DISCHARGE HOME Condition: Good Additional Instructions: -Walk on flat surface with good shoe support, avoid stairs -Try stretches -Try heating pad/cold pack for pain -Tylenol for pain Attestation The exam, history, and the medical decision-making described in the above note were completed with the assistance of the resident provider. I reviewed and agree with the findings presented. I attest that I had a [id number] encounter with the patient on the same day, and personally performed and documented my assessment and findings in the medical record. 26 y/o with IUP at 37+ weeks, sciatic and vaginal pain. no s/sx labor. cat 1 tracing. discussed stretching exercises and supportive care. (Lisa Keys MD) Faviola Stubbs MD R1 Apr 19, 2017 12:02 Lisa Keys MD Apr 19, 2017 12:15
== END 2017-04-19 12:14 | disposition home or self-care (01) ==
LOC: HOBED 11:14
DX: O99.89 Other specified diseases and conditions complicating pregnancy, childbirth and the puerperium (principal); M54.32 Sciatica, left side; O24.913 Unspecified diabetes mellitus in pregnancy, third trimester; Z3A.37 37 weeks gestation of pregnancy; Z79.4 Long term (current) use of insulin
CPT/HCPCS: 99284

== ENCOUNTER 2017-04-21 02:01 | Inpatient (IN) | payer OTHER ==
[~2017-04-21] VITALS: Ht 175.3 cm; Wt 140.0 kg
[2017-04-21] VITALS (63 sets, daily range): BP systolic 89–139; BP diastolic 39–91; PULSE 18–135; RESP 16–18; TEMP 97.5–98.4; O2SAT 92–100
--- NOTE | 2017-04-21 03:05 | HHI.HP ---
HPI Chief Complaint Contractions Date Seen: Apr 21, 2017 Time Seen: 03:05 (Mara Lainez MD R1) Travel History International Travel<30 Days: No Contact w/Intl Traveler<30Days: No Known Affected Area: No (Mara Lainez MD R1) History of Present Illness HPI Patient is a 26-year-old at 37 weeks and 5 days who presents to OB triage complaining of contractions every 4 minutes. Patient received some care at [facility]. Per patient, MARY ANN is based on early trimester ultrasound. Patient did not have labs drawn. GBS positive. Patient denies vaginal bleeding. She is not sure about fluid leakage. She is experiencing contractions. She endorses appropriate movement. Of note, patient is diabetic and has required metformin and insulin during this . Patient also reports recurrent UTIs during this . Weeks Gestation: 37 Para: 2 : 5 Miscarriage: 2 (Mara Lainez MD R1) History Past Medical History Narrative Medical DM 2 since last (Mara Lainez MD R1) Obstetric History Obstetric History 2013 full term vaginal 2011 vaginal 2 spontaneous abortions (Mara Lainez MD R1) Past Surgical History Surgical History: Unable to Obtain (Mara Lainez MD R1) Family History Family History: Negative (Mara Lainez MD) Social History Alcohol Use: No Tobacco Use: No Substance Abuse: No (Mara Lainez MD R1) Allergies-Medications (Allergen,Severity, Reaction): Coded Allergies: oxycodone (Unverified Allergy, Intermediate, ITCHY SKIN, 04/12/17) *MDRO Multi-Drug Resistant Organism (Verified Adverse Reaction, Unknown, 04/12/17) ESBL E.Coli (urine) - 08/2015 & 11/21/16 Uncoded Allergies: EPIDURAL (Allergy, Severe, 10/08/14) Home Meds Reported Medications Insulin NPH (Human) (Isophane) Inj (Novolin N U-100 Inj) 100 Unit/Ml Inj, 40 UNITS SQ DAILY@0600 04/21/17 Insulin Regular (Human) (Afrezza 4 & 8 & 12 Unit) 4-8-12(60) Pow, 25 UNITS SQ BID 04/21/17 Metformin (Metformin) 1,000 Mg Tab, 1000 MG PO BIDPC for Blood Sugar Management , #60 TAB 0 Refills 04/21/17 Pediatric Multiple Vitamin W/ (Gummi Bear Multivitamin/M) 1 Chw Chw 04/21/17 Review of Systems Except as stated in HPI: all other systems reviewed are Neg (Mara Lainez MD R1) Physical Exam Narrative GENERAL: Well-nourished, well-developed patient. SKIN: Warm and dry. HEAD: Normocephalic and atraumatic. EYES: No scleral icterus. No injection or drainage. ENT: No nasal drainage noted. Mucous membranes pink. Airway patent. NECK: Supple, trachea midline. No JVD. CARDIOVASCULAR: Regular rate and rhythm without murmurs, gallops, or rubs. RESPIRATORY: Breath sounds equal bilaterally. No accessory muscle use. ABDOMEN/GI: Abdomen soft, non-tender, bowel sounds present, no rebound, no guarding Gravid to 37 weeks size GENITOURINARY: External Genitalia: intact and normal in appearance Dilatation: 4 cm Effacement: 50% Station: -2 Presentation: Vertex Membranes: Intact Uterine Contractions: Irregular FHT's: Category: 2 Baseline: 160 Reactive: + Variability: Moderate Decels: Late EXTREMITIES: No cyanosis or edema. BACK: Nontender. NEUROLOGICAL: Awake and alert. Motor and sensory grossly within normal limits. Five out of 5 muscle strength in all muscle groups. Normal speech. (Mara Lainez MD R1) Caprini VTE Risk Assessment Caprini VTE Risk Assessment: No/Low Risk (score <= 1) (Mara Lainez MD R1) Data Data Orders Orders Ob (2e) Additional Admit Info (04/21/17 02:54) (Mara Lainez MD R1) Assessment/Plan Problem List: (1) 37 weeks gestation of ICD Codes: Z3A.37 - 37 weeks gestation of Status: Acute (2) Abdominal pain affecting ICD Codes: O26.899 - Other specified related conditions, unspecified trimester; R10.9 - Unspecified abdominal pain Status: Acute (3) UTI (urinary tract infection) ICD Codes: N39.0 - Urinary tract infection, site not specified Status: Resolved Assessment and Plan Patient is a 26-year-old at 37 weeks and 5 days who presents to OB triage complaining of contractions every 4 minutes. 1. 37 Weeks Gestation * Category 2 tracing - improving to category 1 tracing * Continuous monitoring 2. Contractions * Admission for labor 3. DM II - insulin-dependent 4. Recurrent UTIs during (Mara Lainez MD R1) Attending Attestation Patient seen and evaluated with resident under direct supervision, agree with assessment and plan. (Raul Bonner MD) Mara Lainez MD R1 Apr 21, 2017 03:05 Raul Bonner MD Apr 21, 2017 05:39
[2017-04-21] MEDS ORDERED: METF1000 PO (03:31)
[2017-04-21] MEDS ORDERED: INSU1POW25 SQ (03:31)
[2017-04-21] MEDS ORDERED: NOVOINJ6 SQ (03:31)
[2017-04-21] MEDS ORDERED: GUMMCHW (03:31)
[2017-04-21] MEDS ORDERED: LACTATED RINGER'S 1000 ML INJ 1,000 ML IV PRN (03:37)
[2017-04-21] MEDS ORDERED: CITRIC ACID-SODIUM CITRATE LIQ 30 ML UDC PO SCH (03:45)
[2017-04-21] MEDS ORDERED: SODIUM CHLORID 0.9% 500 ML INJ 500 ML IV PRN (03:45)
[2017-04-21] MEDS ORDERED: LIDOCAINE HCL 1% 50 ML VIAL I-DERMAL PRN (03:45)
[2017-04-21] MEDS ORDERED: MINERAL OIL 10 ML VIAL TOPICAL PRN (03:45)
[2017-04-21] MEDS ORDERED: PENICILLIN G POTASSIUM INJ 5,000,000 UNITS in SODIUM CHLORIDE 0.9% INJ 100 ML IV ONE (03:45)
[2017-04-21] MEDS ORDERED: OXYTOCIN 30 UNITS-500ML PREMIX 500 ML IV ONE (03:45)
[2017-04-21] MEDS ORDERED: LIDOCAINE HCL 1% 50 ML VIAL INFIL PRN (03:45)
[2017-04-21 03:55] LABS: AUTOMATED NEUTROPHIL # 5.4 TH/MM3 (1.8-7.7); BASOPHIL % 0.4 % (0.0-2.0); EOSINOPHIL # 0.1 TH/MM3 (0-0.4); EOSINOPHIL % 0.7 % (0.0-4.0); HEMATOCRIT 33.1 % (35.0-46.0); HEMO FLAGS DIFF FINAL; LYMPH % 22.3 % (9.0-44.0); LYMPHOCYTE # 1.7 TH/MM3 (1.0-4.8); MEAN CELL VOLUME 85.7 FL (80.0-100.0); MEAN CORPUSCULAR HEMOGLOBIN 28.4 PG (27.0-34.0); MEAN CORPUSCULAR HGB CONC 33.2 % (32.0-36.0); MONO % 6.7 % (0.0-8.0); NEUT % 69.9 % (16.0-70.0); PLATELET COUNT 300 TH/MM3 (150-450); RED BLOOD COUNT 3.86 MIL/MM3 (4.00-5.30); RED CELL DISTRIBUTION WIDTH 14.3 % (11.6-17.2); WHITE BLOOD COUNT 7.7 TH/MM3 (4.0-11.0)
[2017-04-21] MEDS ORDERED: SODIUM CHLOR 0.9% 1000 ML INJ 1,000 ML IV PRN (03:57)
[2017-04-21 04:11] LABS: BACTERIA, URINE MOD /hpf; BLOOD, URINE NEG (NEG); COMMENT (UR) CULTURE INDICATED; CULTURE IF INDICATED CULTURE INDICATED; GLUCOSE,URINE 150 mg/dL (NEG); KETONE, URINE NEG (NEG); NITRITE,URINE NEG (NEG); PH, URINE 6.5 (5.0-8.5); SQUAMOUS EPITHELIAL CELL URINE 1 /hpf (0-5); TRANSITIONAL EPI CELLS, URINE <1 /hpf; URINE COLOR LIGHT-YELLOW (YELLW/STRAW)
[2017-04-21] MEDS: LACTATED RINGER'S 1000 ML INJ 1,000 ML IV SCH ×3 (04:14→08:15)
[2017-04-21] MEDS ORDERED: fentaNYL 2MCG-BUPIV 0.125% INJ 100 ML ONE (05:57)
[2017-04-21] MEDS ORDERED: BUPIVACAINE HCL PF 0.25% 10 ML VIAL ONE (06:15)
[2017-04-21] MEDS ORDERED: ePHEDrine/NS 25 MG/5 ML SYR ONE ×2 (06:16→07:16)
[2017-04-21] MEDS ORDERED: ROPIVACAINE 0.5% EPIDURAL SCH (07:30)
[2017-04-21] MEDS ORDERED: SODIUM CHLOR 0.9% IV SCH (07:30)
[2017-04-21] MEDS ORDERED: ROPIVACAINE 0.5% IV SCH (07:30)
[2017-04-21] MEDS ORDERED: SODIUM CHLOR 0.9% EPIDURAL SCH (07:30)
[2017-04-21] MEDS ORDERED: ONDANSETRON HCL 4 MG/2 ML VIAL ONE (07:59)
[2017-04-21] MEDS: PENICILLIN G POTASSIUM INJ 2,500,000 UNITS in SODIUM CHLORIDE 0.9% INJ 100 ML IV SCH ×2 (08:46→12:22)
--- NOTE | 2017-04-21 09:43 | PD.LABORPN ---
Subjective Subjective The patient is without complaint. She is comfortable with epidural. Objective Vital Signs Vital Signs Date Time Temp Pulse Resp B/P (MAP) Pulse Ox O2 Delivery O2 Flow Rate FiO2 04/21/17 08:55 78 100 04/21/17 08:51 105 89/44 (59) 04/21/17 08:50 97 100 04/21/17 08:46 71 99/47 (64) 04/21/17 08:45 71 100 04/21/17 08:24 98.4 16 04/21/17 08:01 91 103/56 (72) 04/21/17 08:00 135 90/44 (59) 04/21/17 07:42 121 120/64 (82) 04/21/17 07:40 129 100 04/21/17 07:35 89 121/65 (83) 100 04/21/17 07:35 105 04/21/17 07:33 121 98/39 (58) 04/21/17 07:31 104 105/40 (61) 04/21/17 07:30 99 99 04/21/17 07:25 106 04/21/17 07:25 100 04/21/17 07:24 109 124/69 (87) 04/21/17 07:21 100 107/50 (69) 04/21/17 07:20 90 99 04/21/17 07:15 103 99 04/21/17 07:11 97.6 18 04/21/17 07:03 120 124/69 (87) 04/21/17 07:00 97 100 04/21/17 06:55 110 04/21/17 06:55 100 04/21/17 06:50 99 04/21/17 06:46 119/83 (95) 04/21/17 06:45 100 04/21/17 06:41 107 124/64 (84) 04/21/17 06:40 100 04/21/17 06:31 89 107/81 (90) 04/21/17 06:26 90 119/62 (81) 04/21/17 06:20 108/54 (72) 04/21/17 06:20 100 04/21/17 06:20 102 04/21/17 06:00 18 04/21/17 03:51 87 04/21/17 03:51 110/52 (71) Objective Pelvic Exam: Cervix: [-] Dilatation: [-6] Effacement: [70-] Station: [-3-] Presentation: [-] Membranes: [Artificially ruptured with clear fluid at 0 9:30] Uterine Contractions: [Mild to moderate every 3-] FHT's: Category: [2-] Baseline: [-] Reactive: [-] Variability: [Moderate-] Decels: [-] Weeks Gestation: 37 Gest Age Assessed Date: Apr 21, 2017 Gest Age Assessed Time: 09:41 Pt started active labor?: Yes Active labor start date: Apr 21, 2017 Active labor start time: 06:00 Medical induction of labor?: No Artificial rupture of membrane: Yes Artificial ROM date: Apr 21, 2017 Artifical ROM time: 09:00 Assessment/Plan Problem List: (1) 37 weeks gestation of ICD Codes: Z3A.37 - 37 weeks gestation of Status: Acute (2) Abdominal pain affecting ICD Codes: O26.899 - Other specified related conditions, unspecified trimester; R10.9 - Unspecified abdominal pain Status: Acute (3) UTI (urinary tract infection) ICD Codes: N39.0 - Urinary tract infection, site not specified Status: Resolved Qualifiers: Assessment and Plan Assessment: 26-year-old multiparous female in early active labor, #2 resolved hypertension following epidural placement, #3 insulin-dependent diabetes with blood sugars in the 130s Plan: Every 2 hours blood sugars, continue epidural, consider Pitocin augmentation if internal monitoring demonstrates inadequate contraction intensity. Raul Bonner MD Apr 21, 2017 09:43
[2017-04-21] MEDS ORDERED: OXYTOCIN 30 UNITS-500ML PREMIX 500 ML IV SCH ×2 (10:00→13:15)
[2017-04-21] MEDS ORDERED: ALUMINUM/MAGNESIUM/SIMETH 30 ML CUP PO PRN (13:15)
[2017-04-21] MEDS ORDERED: ACETAMINOPHEN 325 MG TAB PO PRN (13:15)
[2017-04-21] MEDS ORDERED: ONDANSETRON ODT 4 MG TAB PO PRN (13:15)
[2017-04-21] MEDS ORDERED: SODIUM CHLORIDE 0.9% FLUSH 10 ML FLUSH IV FLUSH PRN (13:15)
[2017-04-21] MEDS ORDERED: BENZOCAINE 20% TOPICAL SPRAY 60 ML CAN TOPICAL PRN (13:15)
[2017-04-21] MEDS ORDERED: ZOLPIDEM TARTRATE 5 MG TAB PO PRN (13:15)
[2017-04-21] MEDS ORDERED: oxyCODONE/ACETAMINOPHEN 5 MG/325 MG TAB PO PRN (13:15)
--- NOTE | 2017-04-21 13:15 | PD.OB.DELI ---
Weeks gestation: 37 Gest age assessed date: Apr 21, 2017 Gest age assessed time: 09:41 Pt started active labor?: Yes Active labor start date: Apr 21, 2017 Active labor start time: 06:00 Medical induction of labor?: No Artificial rupture of membrane: Yes Artificial ROM date: Apr 21, 2017 Artifical ROM time: 09:00 Anesthesia: Epidural Episiotomy: None Vaginal Delivery: Normal, Spontaneous Presentation: Occiput anterior Nuchal Cord: x1 Delayed cord clamping (45 sec): No : Male, Single Delivery date: Apr 21, 2017 Delivery time: 13:03 One Minute : 8 Five Minute : 9 Weight: 4120 gm Placenta: Spontaneous delivery, Intact Laceration: No lacerations Estimated blood loss: 100 cc Ney Euceda II, MD Apr 21, 2017 13:15
[2017-04-21 13:20] LABS: BLOOD GAS O2 HGB SATURATION 23 % (90-100); CORD BLOOD GAS HCO3 29 mmol/L (21-29); CORD BLOOD GAS PCO2 67 mmHG (34-78); CORD BLOOD GAS PH 7.27 (7.14-7.42); CORD BLOOD GAS PO2 17 mmHG (3.0-40.0); DRAW SITE CORD BLOOD; STAT NO
[2017-04-21] MEDS: IBUPROFEN 600 MG TAB PO PRN ×2 (14:31→21:07)
[2017-04-21 15:46] LABS: RUBELLA IGG ANTIBODY 62.9 IU/mL (10.0-500.0); RUBELLA STATUS IMMUNE (IMMUNE)
[2017-04-21] MEDS: ACETAMINOPHEN/HYDROcodone 325 MG/5 MG TAB PO PRN ×2 (15:58→21:08)
[2017-04-21] MEDS ORDERED: MEASLES, MUMPS, RUBELLA VACCINE 0.5 ML VIAL SQ ONE (16:00)
[2017-04-21] MEDS ORDERED: DIPHTH/TETANUS/ACEL PERTUSSIS (BOOSTER) 0.5 ML VIAL/PFS IM ONE (16:00)
[2017-04-21] MEDS ORDERED: SODIUM CHLORIDE 0.9% FLUSH 10 ML FLUSH IV FLUSH SCH (21:00)
[2017-04-21] MEDS: DOCUSATE SODIUM 50 MG/SENNA 8.6 MG TAB PO PRN (21:08)
[2017-04-21] MEDS: metFORMIN HCL 500 MG TAB PO SCH (21:08)
[2017-04-21] MEDS: INSULIN DETEMIR 100 UNITS/ML VIAL SQ SCH (21:34)
[2017-04-21] MEDS: WITCH HAZEL 50%/GLYCERIN 12.5% 40 PAD JAR TOPICAL PRN (22:48)
[2017-04-22] MEDS: ACETAMINOPHEN/HYDROcodone 325 MG/5 MG TAB PO PRN ×5 (01:18→21:39)
[2017-04-22 07:08] LABS: BICARBONATE 24.7 MEQ/L (21.0-32.0); POTASSIUM 3.6 MEQ/L (3.5-5.1)
[2017-04-22] MEDS: IBUPROFEN 600 MG TAB PO PRN ×3 (07:10→21:39)
[2017-04-22 08:07] VITALS: BP 103/54; PULSE 71; RESP 18; TEMP 97.7
--- NOTE | 2017-04-22 08:32 | HHI.OB ---
Subjective Post Day: 1 Remarks day # 1. AFVSS overnight. Pain minimal. Decreased lochia. Denies dysuria. No breast tenderness. She is feeding the baby via breast. Appetite good. No nausea or vomiting. Endorses flatus. No bowel movement. Ambulating well. Denies calf pain, shortness of breath, or cough. Otherwise, she is doing well this morning and has no other complaints. Objective Vitals/I&O Vital Signs Date Time Temp Pulse Resp B/P (MAP) Pulse Ox O2 Delivery O2 Flow Rate FiO2 04/22/17 08:07 97.7 71 18 04/22/17 08:07 103/54 (70) 04/21/17 23:00 75 18 109/70 (83) 99 04/21/17 22:00 75 18 99 04/21/17 22:00 109/70 (83) 04/21/17 15:10 98.1 62 18 111/62 (78) 04/21/17 14:04 98.0 18 04/21/17 13:46 87 116/50 (72) 04/21/17 13:43 16 04/21/17 13:40 80 109/54 (72) 04/21/17 13:18 90 18 108/57 (74) 04/21/17 13:15 88 04/21/17 12:16 84 139/76 (97) 04/21/17 12:01 86 123/91 (102) 04/21/17 12:00 105 100 04/21/17 11:50 82 100 04/21/17 11:46 95 108/60 (76) 04/21/17 11:45 106 100 04/21/17 11:16 88 96/55 (69) 04/21/17 11:15 94 99 04/21/17 11:10 85 99 04/21/17 11:05 86 99 04/21/17 11:01 85 101/51 (68) 04/21/17 11:00 113 100 04/21/17 10:31 86 115/64 (81) 04/21/17 10:30 111 100 04/21/17 10:20 117 90/46 (61) 04/21/17 10:16 119 04/21/17 10:15 97.5 04/21/17 09:41 97 116/52 (73) 04/21/17 09:35 116 92 04/21/17 09:31 90 110/51 (70) 04/21/17 09:30 100 99 04/21/17 08:55 78 100 04/21/17 08:51 105 89/44 (59) 04/21/17 08:50 97 100 04/21/17 08:46 71 99/47 (64) 04/21/17 08:45 71 100 Objective Remarks GENERAL: Well-nourished, well-developed patient. CARDIOVASCULAR: Regular rate and rhythm without murmurs, gallops, or rubs. RESPIRATORY: Breath sounds equal bilaterally. No accessory muscle use. ABDOMEN/GI: Abdomen soft, non-tender. Fundus: Firm, non-tender at umbilicus. GENITOURINARY: Light to moderate bleeding. EXTREMITIES: No cyanosis or edema, non-tender, without signs of DVT. Medications and IVs Current Medications Medications (Trade) Dose Ordered Sig/Blaire Route Start Time Stop Time Status Last Admin Lactated Ringer's 1,000 ml @ 125 mls/hr Q8H IV 04/21/17 03:37 04/21/17 08:15 Lactated Ringer's 1,000 ml @ 3,000 mls/hr Q20M PRN IV 04/21/17 03:37 04/21/17 08:14 Sodium Chloride 500 ml @ 1,000 mls/hr ONCE PRN IV 04/21/17 03:45 04/28/17 03:44 Sodium Chloride 1,000 ml @ 100 mls/hr Q10H PRN IV 04/21/17 03:57 (Xylocaine 1% Inj (50 ml)) 0.1 ml UNSCH X1 PRN I-DERMAL 04/21/17 03:45 04/24/17 03:44 (Bicitra Liq) 30 ml TABLEAU ARCHITECT PO 04/21/17 03:45 04/25/17 03:44 (Xylocaine 1% Inj (50 ml)) 10 ml UNSCH X1 PRN INFIL 04/21/17 03:45 04/23/17 03:44 (Muri-Lube Oil) 10 ml UNSCH PRN TOPICAL 04/21/17 03:45 (NS Flush) 2 ml BID IV FLUSH 04/21/17 21:00 (NS Flush) 2 ml UNSCH PRN IV FLUSH 04/21/17 13:15 (Tylenol) 650 mg Q4H PRN PO 04/21/17 13:15 (Motrin) 600 mg Q6H PRN PO 04/21/17 13:15 04/22/17 07:10 (Americaine 20% Top Spr) 1 spray Q4H PRN TOPICAL 04/21/17 13:15 04/21/17 22:48 (Tucks Pads) 1 applic QID PRN TOPICAL 04/21/17 13:15 04/21/17 22:48 (Leslie-Colace) 2 tab Q12H PRN PO 04/21/17 13:15 04/21/17 21:08 (Ambien) 5 mg HS PRN PO 04/21/17 13:15 (Mag-Al Plus Susp Liq) 15 ml Q8H PRN PO 04/21/17 13:15 (Zofran Odt) 4 mg Q6H PRN PO 04/21/17 13:15 ([place] 5-325 Mg) 1 tab Q4H PRN PO 04/21/17 14:45 04/22/17 07:10 (Glucophage) 1,000 mg BID PO 04/21/17 21:00 04/21/17 21:08 (Levemir Inj) 50 units HS SQ 04/21/17 21:00 04/21/17 21:34 Assessment/Plan Assessment and Plan 26 y/o who is PPD# 1 s/p . care s/p vaginal delivery -Continue routine care. -Percocet and Motrin PRN pain. -Encouraged OOB. Advised pelvic rest for 6 wks. -Will need a f/u appt. within 6 wks. -Re: ctrl, she is undecided -D/c tomorrow Type 2 DM -Continue Levemir 50 units HS -Metformin 1000mg BID -Monitor accuchecks tamy Ortega,Sven Darling MD, R2 Apr 22, 2017 08:32
[2017-04-22] MEDS: metFORMIN HCL 500 MG TAB PO SCH ×2 (08:59→21:39)
[2017-04-22] MEDS: LACTATED RINGER'S 1000 ML INJ 1,000 ML IV SCH ×2 (09:06→15:54)
[2017-04-22] MEDS: WITCH HAZEL 50%/GLYCERIN 12.5% 40 PAD JAR TOPICAL PRN (16:16)
[2017-04-22 20:20] VITALS: BP 126/84; PULSE 60; RESP 20; TEMP 98; O2SAT 100
[2017-04-22 21:30] VITALS: BP 100/46; PULSE 80; RESP 18; TEMP 98.8
[2017-04-22] MEDS: DOCUSATE SODIUM 50 MG/SENNA 8.6 MG TAB PO PRN (21:38)
[2017-04-22] MEDS: INSULIN DETEMIR 100 UNITS/ML VIAL SQ SCH (21:38)
[2017-04-23] MEDS: IBUPROFEN 600 MG TAB PO PRN ×2 (05:45→12:15)
[2017-04-23] MEDS: ACETAMINOPHEN/HYDROcodone 325 MG/5 MG TAB PO PRN ×2 (05:45→12:15)
[2017-04-23] MEDS: metFORMIN HCL 500 MG TAB PO SCH (09:33)
[2017-04-23] MEDS ORDERED: medroxyPROGESTERone ACETATE SUSP 150 MG/ML SYRINGE IM ONE (10:30)
[2017-04-23] MEDS ORDERED: CEPH500C PO (10:35)
[2017-04-23] MEDS ORDERED: IBUP-232 PO (10:35)
[2017-04-23] MEDS ORDERED: TRAM50TA PO (10:35)
--- NOTE | 2017-04-23 10:36 | HHI.DCPOC ---
Discharge Care Plan Diagnosis: (1) UTI (urinary tract infection) (2) Normal vaginal delivery (3) Diabetes mellitus, insulin dependent (IDDM), uncontrolled Report Symptoms to Your Doctor -Temperature above 100.5 degrees -Redness, of incision or excessive or foul smelling drainage -Unusual pain or calf pain -Increased vaginal bleeding -Painful or difficulty urinating -Feelings of extreme sadness or anxiety after 2 weeks Goals to Promote Your Health * To prevent worsening of your condition and complications * To maintain your health at the optimal level Directions to Meet Your Goals RECOMMEND GTT AT 2-4 WEEKS WITH PILLOW AGENT Take your medications as prescribed Follow your dietary instruction Follow activity as directed Ensure plenty of rest for recovery Drink fluids for hydration Keep your appointments as scheduled Take your immunizations and boosters as scheduled If your symptoms worsen call your PCP, if no PCP go to Urgent Care Center or Emergency Room Smoking is Dangerous to Your Health. Avoid second hand smoke Call the 24-hour crisis hotline for domestic abuse at Sorin Souza MD R2 Apr 23, 2017 10:36 Faviola Stubbs MD R1 Apr 23, 2017 11:35
[2017-04-23] MEDS ORDERED: INSU1POW25 SQ (11:05)
[2017-04-23] MEDS ORDERED: NOVOINJ6 SQ (11:05)
--- NOTE | 2017-04-23 11:44 | HHI.OB ---
Subjective Remarks 26 year old female s/p at 37/5 wks gestation, PPD2. AFVSS. Patient reports she is feeling well. Bleeding is decreasing and pain is well- controlled. She is breast/formula feeding and bonding well with baby. Ambulating without difficulties. She is tolerating a diet without nausea or vomiting. She has had a bowel movement. She has passed gas. Denies chest pain, dysuria, shortness of breath, or calf pain. Objective Vitals/I&O Vital Signs Date Time Temp Pulse Resp B/P (MAP) Pulse Ox O2 Delivery O2 Flow Rate FiO2 04/22/17 21:30 98.8 80 18 100/46 (64) 04/22/17 20:20 98.0 60 20 126/84 (98) 100 Objective Remarks GENERAL: Well-nourished, well-developed patient. CARDIOVASCULAR: Regular rate and rhythm without murmurs, gallops, or rubs. RESPIRATORY: Breath sounds equal bilaterally. No accessory muscle use. ABDOMEN/GI: Abdomen soft, non-tender. Fundus: Firm, non-tender at umbilicus. GENITOURINARY: Light to moderate bleeding. EXTREMITIES: No cyanosis or edema, non-tender, without signs of DVT. Medications and IVs Current Medications Medications (Trade) Dose Ordered Sig/Blaire Route Start Time Stop Time Status Last Admin Lactated Ringer's 1,000 ml @ 125 mls/hr Q8H IV 04/21/17 03:37 04/21/17 08:15 Lactated Ringer's 1,000 ml @ 3,000 mls/hr Q20M PRN IV 04/21/17 03:37 04/21/17 08:14 Sodium Chloride 500 ml @ 1,000 mls/hr ONCE PRN IV 04/21/17 03:45 04/28/17 03:44 Sodium Chloride 1,000 ml @ 100 mls/hr Q10H PRN IV 04/21/17 03:57 (Xylocaine 1% Inj (50 ml)) 0.1 ml UNSCH X1 PRN I-DERMAL 04/21/17 03:45 04/24/17 03:44 (Bicitra Liq) 30 ml OUTSIDE PROPERTY AGENT PO 04/21/17 03:45 04/25/17 03:44 (Muri-Lube Oil) 10 ml UNSCH PRN TOPICAL 04/21/17 03:45 (NS Flush) 2 ml BID IV FLUSH 04/21/17 21:00 (NS Flush) 2 ml UNSCH PRN IV FLUSH 04/21/17 13:15 (Tylenol) 650 mg Q4H PRN PO 04/21/17 13:15 (Motrin) 600 mg Q6H PRN PO 04/21/17 13:15 04/23/17 05:45 (Americaine 20% Top Spr) 1 spray Q4H PRN TOPICAL 04/21/17 13:15 04/21/17 22:48 (Tucks Pads) 1 applic QID PRN TOPICAL 04/21/17 13:15 04/22/17 16:16 (Leslie-Colace) 2 tab Q12H PRN PO 04/21/17 13:15 04/22/17 21:38 (Ambien) 5 mg HS PRN PO 04/21/17 13:15 (Mag-Al Plus Susp Liq) 15 ml Q8H PRN PO 04/21/17 13:15 (Zofran Odt) 4 mg Q6H PRN PO 04/21/17 13:15 ([place] 5-325 Mg) 1 tab Q4H PRN PO 04/21/17 14:45 04/23/17 05:45 (Glucophage) 1,000 mg BID PO 04/21/17 21:00 04/23/17 09:33 (Levemir Inj) 50 units HS SQ 04/21/17 21:00 04/22/17 21:38 Assessment/Plan Assessment and Plan 26 y/o who is PPD# 2 s/p . 1. care s/p vaginal delivery -Continue routine care. -Tramadol 50mg q6 Motrin PRN pain. -Encouraged OOB. Advised pelvic rest for 6 wks. -Will need a f/u appt. within 6 wks. -Re: ctrl, depo shot -D/c today 2. Type 2 DM -Insulin NPH 20units SQ daily -Insulin Regular 12 units SQ daily -Metformin 1,000mg BID -Recommend GTT 2-3 weeks with MATERIAL EXPEDITOR 3. UTI -urine culture positive for E.coli -Cephalexin 500mg PO q6 s/d/w Faviola Villarreal MD R1 Apr 23, 2017 11:44
== END 2017-04-23 13:15 | disposition home or self-care (01) | DRG 774 ==
LOC: HOBED 02:01 → H2EB 02:58 → H1EA 15:04
PROVIDERS: ADMIT Obstetrics & Gynecology; ATTEND Obstetrics & Gynecology
PROC: 10E0XZZ Delivery of Products of Conception, External Approach (ICD-10-PCS; principal; 2017-04-21)
PROC: 10907ZC Drainage of Amniotic Fluid, Therapeutic from Products of Conception, Via Natural or Artificial Opening (ICD-10-PCS; 2017-04-21)
DX: O75.3 Other infection during labor (principal); O24.12 Pre-existing type 2 diabetes mellitus, in childbirth; E11.9 Type 2 diabetes mellitus without complications; R03.0 Elevated blood-pressure reading, without diagnosis of hypertension; O99.824 Streptococcus B carrier state complicating childbirth; O69.81X0 Labor and delivery complicated by cord around neck, without compression, not applicable or unspecified; B96.20 Unspecified Escherichia coli [E. coli] as the cause of diseases classified elsewhere; Z88.4 Allergy status to anesthetic agent; Z37.0 Single live birth; Z3A.37 37 weeks gestation of pregnancy; Z79.4 Long term (current) use of insulin; Z88.5 Allergy status to narcotic agent
CPT/HCPCS: 80048; 80074; 81001; 82805; 82948; 85025; 86592; 86703; 86762; 86850; 86900; 86901; 87077; 87086; 87186; 90715; J2405; J2540; J2590; J2795; J3010; J7050; J7120

== ENCOUNTER 2017-06-07 09:28 | Emergency (ER) | payer OTHER ==
[~2017-06-07] VITALS: Ht 175.3 cm; Wt 138.0 kg
[~2017-06-07 09:28] MED LIST changes: -AMOX500C PO; -BLOO-54 SQ; -BLOOD GLUCOSE T1 TES; -GLYB5TAB3 PO; +GUMMCHW; +INSU1POW25 SQ; +METF1000 PO; -NITR1CAP36 PO; -NITR1CAP37 PO; +NOVOINJ6 SQ; -NOVONP2 SQ; -NOVORP2 SQ; -SYRI1DIS SQ
[2017-06-07 09:30] VITALS: BP 137/81; PULSE 122; RESP 16; TEMP 99.7; O2SAT 95
[2017-06-07] MEDS ORDERED: SODIUM CHLORIDE 0.9% FLUSH 10 ML FLUSH IVF PRN (10:00)
[2017-06-07] MEDS ORDERED: SODIUM CHLOR 0.9% 1000 ML INJ 1,000 ML IV ONE (10:00)
[2017-06-07 10:22] LABS: AUTOMATED NEUTROPHIL # 8.8 TH/MM3 (1.8-7.7); BASOPHIL % 0.3 % (0.0-2.0); EOSINOPHIL # 0.2 TH/MM3 (0-0.4); EOSINOPHIL % 1.9 % (0.0-4.0); HEMATOCRIT 39.8 % (35.0-46.0); HEMO FLAGS DIFF FINAL; LYMPH % 11.5 % (9.0-44.0); LYMPHOCYTE # 1.3 TH/MM3 (1.0-4.8); MEAN CELL VOLUME 84.9 FL (80.0-100.0); MONO % 5.5 % (0.0-8.0); NEUT % 80.8 % (16.0-70.0); PLATELET COUNT 273 TH/MM3 (150-450); RED BLOOD COUNT 4.69 MIL/MM3 (4.00-5.30); RED CELL DISTRIBUTION WIDTH 14.8 % (11.6-17.2); WHITE BLOOD COUNT 10.9 TH/MM3 (4.0-11.0)
--- NOTE | 2017-06-07 10:25 | RADRPT ---
EXAM DATE/TIME: 06/07/2017 10:01 [facility] COMPARISON: CHEST PA & LAT, April 26, 2015, 16:51. INDICATIONS : Cough. MEDICAL HISTORY : Diabetes mellitus type II. SURGICAL HISTORY : None. ENCOUNTER: Initial ACUITY: 2 days PAIN SCORE: 0/10 LOCATION: Bilateral chest FINDINGS: PA and lateral views of the chest demonstrate the lungs to be symmetrically aerated without evidence of mass, infiltrate or effusion. The cardiomediastinal contours are unremarkable. Osseous structure s are intact. CONCLUSION: 1. No acute cardiopulmonary disease. Vincenzo Pena MD on June 07, 2017 at 10:23 Board Certified Radiologist. This report was verified electronically.
[2017-06-07 10:28] LABS: BACTERIA, URINE RARE /hpf; BLOOD, URINE NEG (NEG); COMMENT (UR) CULT NOT INDICATED; CULTURE IF INDICATED CULT NOT INDICATED; GLUCOSE,URINE NEG (NEG); KETONE, URINE NEG (NEG); MUCUS URINE FEW /lpf (OCC); NITRITE,URINE NEG (NEG); PH, URINE 6.5 (5.0-8.5); SQUAMOUS EPITHELIAL CELL URINE 2 /hpf (0-5); URINE COLOR YELLOW (YELLW/STRAW)
[2017-06-07 10:30] LABS: ALT (GPT) 37 U/L (10-53); ANION GAP 6 MEQ/L (5-15); AST (GOT) 18 U/L (15-37); BICARBONATE 25.7 MEQ/L (21.0-32.0); BLOOD UREA NITROGEN 8 MG/DL (7-18); CHLORIDE 105 MEQ/L (98-107); GLOMERULAR FILTRATION RATE 96 ML/MIN (>89); POTASSIUM 3.7 MEQ/L (3.5-5.1); SODIUM (NA) 137 MEQ/L (136-145)
[2017-06-07 10:33] LABS: ALKALINE PHOSPHATASE 118 U/L (45-117); TOTAL BILIRUBIN ADULT 0.5 MG/DL (0.2-1.0)
[2017-06-07 10:36] VITALS: O2SAT 90
[2017-06-07] MEDS ORDERED: RESP: ALBUTEROL 2.5 MG/IPRATROPIUM 0.5 MG NEB (SCH) NEB ONE ×2 (10:45→12:00)
[2017-06-07] MEDS ORDERED: ACETAMINOPHEN 325 MG TAB PO ONE (12:00)
[2017-06-07 12:06] VITALS: BP 135/83; PULSE 105; RESP 18; O2SAT 97
[2017-06-07] MEDS ORDERED: IOHEXOL 350 MG/ML 10 ML VIAL (for RAD DIAG) IVCONTRAST ONE (12:53)
--- NOTE | 2017-06-07 14:09 | RADRPT ---
EXAM DATE/TIME: 06/07/2017 12:50 [facility] COMPARISON: No previous studies available for comparison. INDICATIONS : Shortness of breath and chest tightness. IV CONTRAST: 75 cc Omnipaque 350 (iohexol) IV RADIATION DOSE: 23.01 CTDIvol (mGy) MEDICAL HISTORY : Diabetes mellitus type 1. SURGICAL HISTORY : None. ENCOUNTER: Initial ACUITY: 2 days PAIN SCALE: 2/10 LOCATION: Bilateral chest TECHNIQUE: Volumetric scanning of the chest was performed using a pulmonary embolism protocol MIP images were re constructed. Using automated exposure control and adjustment of the mA and/or kV according to patien t size, radiation dose was kept as low as reasonably achievable to obtain optimal diagnostic quality images. DICOM format image data is available electronically for review and comparison. Follow-up recommendations for detected pulmonary nodules are based at a minimum on nodule size and pa tient risk factors according to Fleischner Society Guidelines. FINDINGS: PULMONARY ARTERIES: There is less than optimal opacification of the pulmonary arteries. No filling defects are seen in th e pulmonary arteries through the segmental level. LUNGS: There is no consolidation or pneumothorax . No concerning pulmonary nodule is visualized. PLEURAE: There is no pleural thickening or pleural effusion. MEDIASTINUM: The heart and great vessels demonstrate no acute finding. No lymphadenopathy is present. There is res idual thymic tissue in the anterior mediastinum. MUSCULOSKELETAL: No acute abnormality. MISCELLANEOUS: The visualized upper abdominal organs demonstrate no acute abnormality. CONCLUSION: 1. There is less than optimal opacification of the pulmonary arteries but no PE is identified through most of the segmental level pulmonary arteries. 2. Otherwise, no acute finding is identified within the chest to explain the clinical symptoms. Paul Mclean MD on June 07, 2017 at 14:04 Board Certified Radiologist. This report was verified electronically.
[2017-06-07] MEDS ORDERED: PRED20 PO (14:26)
[2017-06-07] MEDS ORDERED: ALBUAER3 INH (14:26)
[2017-06-07] MEDS ORDERED: AZIT250T3 PO (14:26)
--- NOTE | 2017-06-07 14:26 | PD ---
HPI Chief Complaint: Cold / Flu Symptoms Time Seen by Provider: 09:40 Travel History International Travel<30 days: No Contact w/Intl Traveler<30days: No Traveled to known affect area: No History of Present Illness HPI Patient is a 26-year-old morbidly obese female presents emergency Department with fevers body ache cough and congestion for the past 24 hours which is gradually worsening. She denies any chest pain abdominal pain nausea or vomiting. States she does have a history of asthma but has not taken her inhalers and some time because she hasn't needed them. States fever at home but did not take her temperature. PFSH Past Medical History Hx Anticoagulant Therapy: No Autoimmune Disease: No Cardiovascular Problems: No Chemotherapy: No Cerebrovascular Accident: No Diabetes: Yes (TYPE 1) Patient Takes Glucophage: Yes Diminished Hearing: No Gastrointestinal Disorders: No Genitourinary: Yes (HX OF UTI) Headaches: Yes Neurologic: No Respiratory: No Immunizations Current: Yes Tetanus Vaccination: < 5 Years Influenza Vaccination: No ?: Not Menopausal: No : 3 Para: 2 Miscarriage: 1 Past Surgical History Hysterectomy: No Other Surgery: No Social History Alcohol Use: No Tobacco Use: No Substance Use: No Allergies-Medications (Allergen,Severity, Reaction): Coded Allergies: oxycodone (Unverified Allergy, Intermediate, ITCHY SKIN, 06/07/17) *MDRO Multi-Drug Resistant Organism (Verified Adverse Reaction, Unknown, 06/07/17) ESBL E.Coli (urine) - 08/2015 & 11/21/16 Uncoded Allergies: EPIDURAL (Allergy, Severe, 10/08/14) Reported Meds & Prescriptions Reported Meds & Active Scripts Active Tessalon Perles (Benzonatate) 100 Mg Cap 200 Mg PO TID PRN Proair Hfa 8.5 GM Inh (Albuterol Sulfate) 90 Mcg/Act Aer 2 Puff INH Q4-6H PRN 108 mcg/actuation Azithromycin 250 Mg Tab 250 Mg PO DIRECTED Take 2 tabs (500 mg) on day 1 then 1 tab daily x 4 days. Prednisone 20 Mg Tab 60 Mg PO DAILY 5 Days Novolin N U-100 Inj (Insulin NPH (Human) (Isophane) Inj) 100 Unit/Ml Inj 20 Units SQ DAILY@0600 Afrezza 4 & 8 & 12 Unit (Insulin Regular (Human)) 4-8-12(60) Pow 12 Units SQ BID Reported Metformin (Metformin HCl) 1,000 Mg Tab 1,000 Mg PO BIDPC Review of Systems Except as stated in HPI: all other systems reviewed are Neg Physical Exam Narrative GENERAL: Well-developed well-nourished no obvious distress SKIN: Focused skin assessment warm/dry. HEAD: Atraumatic. Normocephalic. EYES: Pupils equal and round. No scleral icterus. No injection or drainage. TMs clear bilaterally, oropharynx clear and moist. ENT: No nasal bleeding or discharge. Mucous membranes pink and moist. NECK: Trachea midline. No JVD. CARDIOVASCULAR: Tachycardic with regular rhythm. No murmur appreciated. RESPIRATORY: No accessory muscle use. Clear to auscultation. Breath sounds equal bilaterally. GASTROINTESTINAL: Abdomen soft, non-tender, nondistended. Hepatic and splenic margins not palpable. MUSCULOSKELETAL: No obvious deformities. No clubbing. No cyanosis. No edema. NEUROLOGICAL: Awake and alert. No obvious cranial nerve deficits. Motor grossly within normal limits. Normal speech. PSYCHIATRIC: Appropriate mood and affect; insight and judgment normal. Data Data Last Documented VS Vital Signs Date Time Temp Pulse Resp B/P (MAP) Pulse Ox O2 Delivery O2 Flow Rate FiO2 06/07/17 14:47 06/07/17 14:43 100 16 98 Room Air 06/07/17 09:30 99.7 Orders Orders Complete Blood Count With Diff (06/07/17 09:50) Comprehensive Metabolic Panel (06/07/17 09:50) Ecg Monitoring (06/07/17 09:50) Iv Access Insert/Monitor (06/07/17 09:50) Oximetry (06/07/17 09:50) Oxygen Administration (06/07/17 09:50) Sodium Chloride 0.9% Flush (Ns Flush) (06/07/17 10:00) Chest, Pa & Lat (06/07/17 09:50) Urinalysis - C+S If Indicated (06/07/17 09:50) Influenzae A/B Antigen (06/07/17 09:50) Sodium Chlor 0.9% 1000 Ml Inj (Ns 1000 M (06/07/17 10:00) Albuterol-Ipratropium Neb (Duoneb Neb) (06/07/17 10:45) Ct Pulmonary Angiogram (06/07/17 ) Acetaminophen (Tylenol) (06/07/17 12:00) Albuterol-Ipratropium Neb (Duoneb Neb) (06/07/17 12:00) Iohexol 350 Inj (Omnipaque 350 Inj) (06/07/17 12:53) Ed Discharge Order (06/07/17 14:23) Labs Laboratory Tests Test 06/07/17 09:53 06/07/17 09:57 White Blood Count 10.9 TH/MM3 Red Blood Count 4.69 MIL/MM3 Hemoglobin 13.1 GM/DL Hematocrit 39.8 % Mean Corpuscular Volume 84.9 FL Mean Corpuscular Hemoglobin 28.0 PG Mean Corpuscular Hemoglobin Concent 33.0 % Red Cell Distribution Width 14.8 % Platelet Count 273 TH/MM3 Mean Platelet Volume 8.0 FL Neutrophils (%) (Auto) 80.8 % Lymphocytes (%) (Auto) 11.5 % Monocytes (%) (Auto) 5.5 % Eosinophils (%) (Auto) 1.9 % Basophils (%) (Auto) 0.3 % Neutrophils # (Auto) 8.8 TH/MM3 Lymphocytes # (Auto) 1.3 TH/MM3 Monocytes # (Auto) 0.6 TH/MM3 Eosinophils # (Auto) 0.2 TH/MM3 Basophils # (Auto) 0.0 TH/MM3 CBC Comment DIFF FINAL Differential Comment Blood Urea Nitrogen 8 MG/DL Creatinine 0.87 MG/DL Random Glucose 151 MG/DL Total Protein 7.5 GM/DL Albumin 3.6 GM/DL Calcium Level 9.0 MG/DL Alkaline Phosphatase 118 U/L Aspartate Amino Transf (AST/SGOT) 18 U/L Alanine Aminotransferase (ALT/SGPT) 37 U/L Total Bilirubin 0.5 MG/DL Sodium Level 137 MEQ/L Potassium Level 3.7 MEQ/L Chloride Level 105 MEQ/L Carbon Dioxide Level 25.7 MEQ/L Anion Gap 6 MEQ/L Estimat Glomerular Filtration Rate 96 ML/MIN Urine Color YELLOW Urine Turbidity CLEAR Urine pH 6.5 Urine Specific [place] 1.011 Urine Protein NEG mg/dL Urine Glucose (UA) NEG mg/dL Urine Ketones NEG mg/dL Urine Occult Blood NEG Urine Nitrite NEG Urine Bilirubin NEG Urine Urobilinogen LESS THAN 2.0 MG/DL Urine Leukocyte Esterase SMALL Urine RBC LESS THAN 1 /hpf Urine WBC 3 /hpf Urine Squamous Epithelial Cells 2 /hpf Urine Bacteria RARE /hpf Urine Mucus FEW /lpf Microscopic Urinalysis Comment CULT NOT INDICATED MDM Medical Decision Making Medical Screen Exam Complete: Yes Emergency Medical Condition: Yes Differential Diagnosis Flu, pneumonia, PE is an outside possibility. Narrative Course Patient roomed emergency department, morbidly obese and tachycardic, minimal response to DuoNeb treatments, chest x-ray negative, rapid flu negative. Still appears to be viral illness but CT PE protocol is indicated as patient cannot be excluded by other means. Last 24 hours Impressions Chest X-Ray 06/07/17 0950 Signed Impressions: Service Date/Time: , June 07, 2017 10:01 - CONCLUSION: 1. No acute cardiopulmonary disease. Vincenzo Pena MD CT Angiography 06/07/17 0000 Signed Impressions: Service Date/Time: , June 07, 2017 12:50 - CONCLUSION: 1. There is less than optimal opacification of the pulmonary arteries but no PE is identified through most of the segmental level pulmonary arteries. 2. Otherwise , no acute finding is identified within the chest to explain the clinical symptoms. Paul Mclean MD Patient reassured, but this time she is doing better, no further desaturation in the emergency department, will treat like an asthma exacerbation at this time discussed further symptomatic management of her flulike illness. Discussed return to ED criteria. Diagnosis Primary Impression: Flu-like symptoms Additional Impression: Asthma exacerbation Med/Other Pt SpecificInfo: Prescription(s) given Scripts Benzonatate (Tessalon Perles) 100 Mg Cap 200 MG PO TID Y for COUGH, #20 CAP 0 Refills Prov: Mello Pruett MD 06/07/17 Albuterol 8.5 GM Inh (Proair Hfa 8.5 GM Inh) 90 Mcg/Act Aer 2 PUFF INH Q4-6H Y for SHORTNESS OF BREATH, #1 INHALER 0 Refills 108 mcg/actuation Prov: Mello Pruett MD 06/07/17 Azithromycin (Azithromycin) 250 Mg Tab 250 MG PO DIRECTED for Infection, #6 TAB 0 Refills Take 2 tabs (500 mg) on day 1 then 1 tab daily x 4 days. Prov: Mello Pruett MD 06/07/17 Prednisone (Prednisone) 20 Mg Tab 60 MG PO DAILY for 5 Days, #15 TAB 0 Refills Prov: Mello Pruett MD 06/07/17 Disposition: 01 DISCHARGE HOME Condition: Stable Mello Pruett MD Jun 07, 2017 14:26
[2017-06-07 14:43] VITALS: BP 129/76; PULSE 100; RESP 16; O2SAT 98
[2017-06-07] MEDS ORDERED: BENZ100 PO (14:43)
== END 2017-06-07 14:48 | disposition home or self-care (01) ==
LOC: NEPD 09:28
DX: R50.9 Fever, unspecified (principal); M79.1 Myalgia; R05 Cough; R00.0 Tachycardia, unspecified; J45.901 Unspecified asthma with (acute) exacerbation; E66.01 Morbid (severe) obesity due to excess calories; E10.9 Type 1 diabetes mellitus without complications; Z79.4 Long term (current) use of insulin
CPT/HCPCS: 71020; 71275; 80053; 81001; 85025; 87804; 94640; 96360; 96361; 99285; J7030; Q9967